=== PATIENT | female | born 1955 | race Caucasian/White ===

== ENCOUNTER → 2017-06-13 10:31 | Outpatient (CLI) | payer BC, SELFPAY ==
--- NOTE | 2017-06-13 11:00 | MM_ITS ---
MM Dig screening mamm BI w/CAD CAD Screening COMPARISON: Digital mammograms 06/26/2014 and 05/04/2016 INDICATION: There is no personal or family history of breast cancer. There is been previous biopsy right breast for benign disease. TECHNIQUE: Standard CC and MLO images were obtained. R2 CAD reviewed. FINDINGS: Moderate scattered fibroglandular densities are seen in the central portions of both breast and the findings are bilateral and symmetrical. There is no suspicious lesion and there are no suspicious microcalcifications. IMPRESSION: Stable exam with no suspicious lesion seen BI-RADS Category: 1 Negative RECOMMENDED FOLLOW-UP: 1YR - 1 YEAR FOLLOW-UP (A letter has been sent to the patient regarding results of the study.)
== END ==
PROVIDERS: Family Provider Family Medicine; PCP Family Medicine; Visit Provider Nurse Practitioner
DX: Z12.31 Encounter for screening mammogram for malignant neoplasm of breast (principal)
CPT/HCPCS: 77067

== ENCOUNTER → 2018-11-07 10:05 | Outpatient (CLI) | payer MEDICARE, SELFPAY ==
--- NOTE | 2018-11-07 10:12 | MM_ITS ---
PROCEDURE: MM DIG SCREENING MAMM BI W/CAD CLINICAL INDICATION: SCREENING routine screening mammogram. No hormones. No new complaints. Previous benign needle biopsy right breast. Noncontributory family history COMPARISON: DMDBAV DIG MAMM-DX BILAT W/ADD VIEWS from 04/25/2011 DMDB DIGITAL MAMM-DX BILATERAL from 11/03/2011 D[facility]B DIG MAMM-SCREEN HIRAL from 12/04/2013 DMDXUAVR DIG MAMM-DX UNI ADD VIEWS-RT from 12/17/2013 D[facility]B DIG MAMM-SCREEN HIRAL from 06/26/2014 D[facility]B DIG MAMM-SCREEN HIRAL W/CAD from 05/04/2016 [facility] MM Dig screening mamm BI w/CAD from 06/13/2017 TECHNIQUE: Standard CC and MLO images were obtained. R2 CAD reviewed. FINDINGS: Moderate density breast. No suspicious nor dominant mass. No new suspicious density. No suspicious calcifications. Left breast stable unremarkable Right breast but no new areas of significant concern a minimal density retroareolar region MLO view appears similar to MLO studies dating back to 2011 and 2013 IMPRESSION: No new areas of significant concern. Stable mammogram. Bilateral follow-up 1 year should be emphasized/encouraged for ongoing follow-up Moderate breast density BI-RAD Category: 2 Benign Finding(s) FOLLOW-UP: 1YR 1 Year Follow-up (A letter has been sent to the patient regarding results of the study.) Month Dictated by: Romain Livingston MD 11/07/2018 13:54 Signed by: <Electronically signed by Romain Livingston MD in [place]> 11/16/2018 11:31
== END ==
PROVIDERS: PCP Family Medicine; Referring Provider Family Medicine; Visit Provider Family Medicine
DX: Z12.31 Encounter for screening mammogram for malignant neoplasm of breast (principal)
CPT/HCPCS: 77067

== ENCOUNTER → 2019-04-05 13:01 | Outpatient (CLI) | payer MEDICARE, SELFPAY ==
--- NOTE | 2019-04-05 13:06 | XR_ITS ---
PROCEDURE: XR DEXA AXIAL SKELETON CLINICAL HISTORY: POST MENOPAUSAL COMPARISON: No exams were available for comparison FINDINGS: Right femoral neck density is 0.610 with a T-score -2.2 indicating osteopenia Left femoral neck density is 0.571 grams/centimeters sq with T-score -2 point indicating osteoporosis. L1-L4 density has a bone density 0.968 grams/centimeters sq with T-score -0.7. IMPRESSION: Osteoporosis with high fracture risk. Treatment advised. Recommend follow-up exam in 1 year Dictated by: Cuate Boyer MD 04/05/2019 15:34 Electronically signed by Cuate Boyer MD in [place] 04/05/2019 15:34
== END ==
PROVIDERS: PCP Family Medicine; Visit Provider Family Medicine
DX: Z78.0 Asymptomatic menopausal state (principal)
CPT/HCPCS: 77080

== ENCOUNTER → 2019-04-05 14:59 | Outpatient (CLI) | payer MEDICARE, SELFPAY ==
[2019-04-05 15:13] LABS: Basophils # 0.1 K/mm3 (0-0.2); Basophils % 0.8 % (0.1-2.0); Eosinophils # 0.2 K/mm3 (0.0-0.4); Eosinophils % 2.2 % (0.1-12.0); Hematocrit 43.3 % (37.0-47.0); Hemoglobin 13.1 g/dL (12.2-16.2); Lymphocytes # 2.2 K/mm3 (0.7-4.5); Lymphocytes % 26.8 % (10-50); Mean Corpuscular HGB Conc 30.4 g/dL (31.8-35.4); Mean Corpuscular Hemoglobin 26.9 pg (27.0-31.2); Mean Corpuscular Volume 88.6 fl (81-99); Mean Platelet Volume 6.9 fl (7.4-10.4); Monocytes # 0.5 K/mm3 (0.1-1.0); Monocytes % 5.7 % (1.7-9.3); Neutrophils # 5.3 K/mm3 (1.8-7.8); Neutrophils % 64.5 % (37.0-80.0); Platelet Count 395 K/mm3 (142-424); Red Blood Count 4.88 M/mm3 (4.20-5.40); Red Cell Distribution Width 13.1 % (11.5-17.5); White Blood Count 8.2 K/mm3 (4.8-10.8)
[2019-04-05 16:28] LABS: Anion Gap 12.1 mEq/L (5-15); Blood Urea Nitrogen 12 mg/dL (7-18); Calcium 8.8 mg/dL (8.5-10.1); Carbon Dioxide 29 mmol/L (21.0-32.0); Chloride 102 mmol/L (98-107); Creatinine,Serum 0.79 mg/dL (0.55-1.02); Estimated Glomerular Filt Rate 73 ml/min (>60); GFR (African American) 88 ML/MIN (>60); Glucose 93 mg/dL (74-106); Potassium 4.1 mmoL/L (3.5-5.1); Sodium 139 mmol/L (136-145)
== END ==
PROVIDERS: Visit Provider Surgery
DX: D17.9 Benign lipomatous neoplasm, unspecified (principal); M81.0 Age-related osteoporosis without current pathological fracture
CPT/HCPCS: 36415; 77080; 80048; 85025

== ENCOUNTER → 2019-10-21 09:16 | Outpatient (CLI) | payer MEDICARE, SELFPAY ==
--- NOTE | 2019-10-21 | CA_ITS ---
APPROVED REPORT Exam: Exercise Treadmill Technologist: Kristie Nair Ht: 5 ft 2 in Wt: 140 lbs BSA: 1.64 m2 HR: 64 bpm BP: 130/67 mmHg Indications: Dyspnea on Exertion, Medical History Medications: Levothyroxine,,,,, Atorvastatin,,,,, Zolpidem,,,,, Hydroxychloroquine,,,,, Stress Test Details Test: Liu HR Resting HR: 77 bpm Max Heart Rate (APMHR): 154 bpm Max HR Achieved: 150 bpm Target HR (85% APMHR): 130 bpm % of APMHR: 97 Recovery HR: 72 bpm BP Resting BP: 117.0/65.0 mmHg Max BP: 156.0/72.0 mmHg Recovery BP: 127.0/64.0 mmHg ECG Clinical Exercise duration: 06:38 min Highest Stage Achieved: Exercise capacity: 7.0 METs Stress ECG Conclusion Resting ECG: Sinus rhythm Liu protocol completed. Stress echo. Patient exercised 06:38. Test stopped due to shortness of breath.. Symptoms: No chest pain. Shortness of breath at peak exercise, resolved in recovery. Arrhythmias/Ectopy: No ectopy ST-T Changes: Greater than 1.5 mm vs. artifact Conclusion: Stress echo. Appropriate exercise tolerance. Appropriate blood pressure response. No ectopy. Shortness of breath at peak exercise. No chest pain. greater than 1.5 mm vs. artifact. Test Summary REST 29:09 0.0 0.0 77 . 117/ 65 . . Stage 1 01:00 10.0 1.7 98 . . . . Stage 1 02:00 10.0 1.7 118 . . . . Stage 1 03:00 10.0 1.7 123 . . . . Stage 2 01:00 12.0 2.5 127 . 130/ 70 . . Stage 2 02:00 12.0 2.5 131 . 130/ 70 . . Stage 2 03:00 12.0 2.5 135 . 152/ 78 . . Stage 3 00:38 14.0 1.6 140 . . . Stop exercise at 06:38 RECOVERY 01:00 0.0 0.0 106 . . . . RECOVERY 02:00 0.0 0.0 88 . . . . RECOVERY 03:00 0.0 0.0 86 . . . . RECOVERY 04:00 0.0 0.0 77 . 156/ 72 . . RECOVERY 05:00 0.0 0.0 72 . 127/ 64 . . RECOVERY 05:25 0.0 0.0 72 . 127/ 64 . . Electronically signed by : Madhu Christine, 10/23/2019 06:46:03
--- NOTE | 2019-10-21 | CA_ITS ---
APPROVED REPORT EXAM: Comprehensive 2D, Doppler, and color-flow Echocardiogram Gun Numberer: Irma Tse RT(R) Ht: 5 ft 2 in Wt: 140lbs BSA: 1.64 BP: 135/26 mmHg Indications: CHAPMAN Conclusion 1. Patient exercised on Liu protocol and achieved 7 mets of workload on treadmill, please refer to EKG portion of the stress echo for full interpretation. 2. The resting echocardiogram showed normal left ventricular size and function preserved left ventricular systolic function, no regional wall motion abnormality, with exercise there is no segmental wall motion abnormality to suggest underlying ischemic heart disease. 3. Normal echo portion of the exercise stress echo. Electronically signed by : Ja Daniel, 10/21/2019 18:13:30
== END ==
PROVIDERS: PCP Family Medicine; Visit Provider Family Medicine
DX: R07.89 Other chest pain (principal); R06.00 Dyspnea, unspecified; E78.00 Pure hypercholesterolemia, unspecified; Z87.891 Personal history of nicotine dependence
CPT/HCPCS: 93017; 93350

== ENCOUNTER → 2019-10-28 10:53 | Outpatient (CLI) | payer MEDICARE, SELFPAY ==
[2019-10-28 11:30] VITALS: PULSE 78; PULSE 80
== END ==
PROVIDERS: PCP Family Medicine; Visit Provider Family Medicine
DX: R06.00 Dyspnea, unspecified (principal); Z87.891 Personal history of nicotine dependence
CPT/HCPCS: 94060; 94640

== ENCOUNTER → 2020-03-04 10:10 | Outpatient (CLI) | payer MEDICARE, SELFPAY ==
--- NOTE | 2020-03-04 10:13 | MM_ITS ---
PROCEDURE: MM DIG SCREENING MAMM BI W/CAD Digital Breast Tomosynthesis Included CLINICAL INDICATION: SCREENING There is no personal or family history of breast cancer. There has been a previous biopsy right breast for benign disease. COMPARISON: MG DMSB DIG MAMM-SCREEN HIRAL W/CAD from 05/04/2016 MG [facility] MM Dig screening mamm BI w/CAD from 06/13/2017 MG MM DIG SCREENING MAMM BI W/CAD from 11/07/2018 TECHNIQUE: Standard CC and MLO images and 3D Tomosynthesis was obtained. R2 CAD reviewed. FINDINGS: Mild to moderate diffuse fibroglandular densities are seen in the central portions of both breast and the findings are bilateral and symmetrical. There are no CAD markings. There is no new or suspicious lesion in either breast and no suspicious microcalcifications. IMPRESSION: Fibrofatty parenchyma with no suspicious lesions seen BI-RAD Category: FOLLOW-UP: (A letter has been sent to the patient regarding results of the study.) Dictated by: Dr. Navdeep Virgen MD 03/06/2020 12:08 Dr. Navdeep Virgen MD in [place] 03/06/2020 12:08
== END ==
PROVIDERS: PCP Family Medicine; Visit Provider Family Medicine
DX: Z12.31 Encounter for screening mammogram for malignant neoplasm of breast (principal)
CPT/HCPCS: 77063; 77067

== ENCOUNTER 2020-09-21 15:00 | Outpatient (RCR) | payer MEDICARE, SELFPAY ==
--- NOTE | 2020-09-16 16:08 | HMH.OTOPEV ---
OT Inpatient Evaluation Rehab OT Outpatient Eval Start: 09/16/20 15:36 Freq: Status: Active Protocol: Document 09/16/20 15:37 RIPCONCETTA (Rec: 09/16/20 15:58 SOPHIE [id number]) Electronically Signed By Lanette Renae OT 09/16/20 15:37 Outpatient Therapy Subjective History Subjective History 65 year old female referred to skilled OP OT services for left shoulder pain. Patient stated having left shoulder pain since Apr 2020 after lifting heavy bags of salt and moving tree branches from the yard. Patient recieved skilled OP PT services at another facility in [place], however quit going after 1 tx due to increase pain levels. Patient stated having difficulty with lifting left shoulder to complete ADLs and everyday functional tasks. Chief Complaint Pain,Weakness Symptom Type Ache,Dull Symptoms Relieved By Prescription Meds Symptoms Aggravated By Physical Activity Prior Functional Limitations None Current Functional Limitations Reaching,Lifting,Dressing, Sleeping,Recreation Activity Symptom Description Constant and Continuous Level of pain today (0-10) 4 Pain scale - at its best (0-10) 4 Pain scale - at its worst (0-10) 4 Shoulder/Elbow Eval Shoulder Objective Measurements Shoulder ROM Left Shoulder Abduction Active Range of 115 Motion (degrees) Shoulder Flexion Active Range of Motion 140 (degrees) Query Text: Shoulder External Rotation Active Range 62 of Motion (degrees) Shoulder Internal Rotation Active Range 60 of Motion (degrees) pain with active ROM shoulder exam left standard Shoulder MMT Shoulder Abduction Strength Grade 3- Fair- Shoulder Extension Strength Grade 3- Fair- Shoulder Flexion Strength Grade 3- Fair- Shoulder Horizontal Abduction Strength 3- Fair- Grade Infraspinatus/Teres Minor Strength Grade 3- Fair- Shoulder External Rotation Strength 3- Fair- Grade Shoulder Internal Rotation Strength 3- Fair- Grade Elbow Objective Measurements OT Outpatient Assessment Impairments Problems/Impairments Impaired Range of Motion, Impaired Strength,Impaired Endurance,Subjective C/O
== END 2020-09-21 15:05 | disposition home or self-care (01) ==
LOC: OT 15:00
PROVIDERS: PCP Family Medicine; Visit Provider Family Medicine
DX: M75.102 Unspecified rotator cuff tear or rupture of left shoulder, not specified as traumatic (principal)
CPT/HCPCS: 97014; 97110; 97140; 97165; 97530; G0283

== ENCOUNTER → 2021-08-06 11:20 | Outpatient (CLI) | payer MEDICARE, SELFPAY ==
--- NOTE | 2021-08-06 11:29 | XR_ITS ---
FINAL REPORT CLINICAL HISTORY: LT HIP PAIN, patient states she fell 13 years ago and has had pain between scapula and shoots up neck ever since, recent hip xray at chiropractor showed possible left bone spur on hip FINDINGS: LEFT HIP: Two views of the left hip with an AP view of the pelvis demonstrate no acute fracture or dislocation. There is mild degenerative change of the right hip. There is moderate to severe degenerative change of the left hip. There is mild degenerative change of the lower lumbar spine. The visualized bony structures are well aligned. No soft tissue abnormality is seen. IMPRESSION: Degenerative changes with no acute bony abnormality. Reviewed, Interpreted and Dictated by Rolando Chavarria III, MD Transcribed by Bianca Valles Authenticated by Rolando Chavarria III, MD on 08/06/2021 01:37:32 PM [facility]
--- NOTE | 2021-08-06 11:29 | XR_ITS ---
FINAL REPORT CLINICAL HISTORY: CERVICALGIA patient states she fell 13 years ago and has had pain between scapula and shoots up neck ever since, recent hip xray at chiropractor showed possible left bone spur on hip FINDINGS: CERVICAL SPINE Five views were obtained. There is no acute fracture. There is mild retrolisthesis of C5 in relation to C4 and C6. There is multilevel mild neural foraminal narrowing seen on the oblique views. There is mild and moderate degenerative change. There is no soft tissue abnormality. IMPRESSION: Degenerative change with no acute bony abnormality. Reviewed, Interpreted and Dictated by Rolando Chavarria III, MD Transcribed by Bianca Valles Authenticated by Rolando Chavarria III, MD on 08/06/2021 01:37:35 PM [facility]
== END ==
PROVIDERS: PCP Family Medicine; Visit Provider Family Medicine
DX: M54.2 Cervicalgia (principal); M25.552 Pain in left hip
CPT/HCPCS: 72050; 73502

== ENCOUNTER → 2021-10-28 10:44 | Outpatient (CLI) | payer MEDICARE, SELFPAY ==
--- NOTE | 2021-10-28 10:50 | MM_ITS ---
PROCEDURE INFORMATION: Exam: MG Bilateral Screening 3D Mammography Exam date and time: 10/28/2021 10:43 AM Age: 66 years old Clinical indication: Screening examination TECHNIQUE: Imaging protocol: Bilateral Screening tomosynthesis and 2D mammography including computer-aided detection (CAD) when performed. COMPARISON: 1. MG MM DIG SCREENING MAMM BI W/CAD 03/04/2020 10:17 AM 2. MG MM DIG SCREENING MAMM BI W/CAD 11/07/2018 10:28 AM FINDINGS: MAMMOGRAPHY: Breast composition: The breasts are heterogeneously dense, which may obscure small masses. Mass: None. Architectural distortion: None. Calcifications: No suspicious calcifications. Asymmetric density: None. Skin thickening: None. Axillary adenopathy: None. IMPRESSION: No mammographic evidence of malignancy. Annual screening is recommended unless otherwise clinically indicated. ASSESSMENT: BI-RADS Category 1: Negative
== END ==
PROVIDERS: PCP Family Medicine; Visit Provider Nurse Practitioner Family
DX: Z12.31 Encounter for screening mammogram for malignant neoplasm of breast (principal)
CPT/HCPCS: 77063; 77067

== ENCOUNTER → 2021-12-23 10:32 | Outpatient (CLI) | payer MEDICARE, SELFPAY ==
--- NOTE | 2021-12-23 10:38 | CA_ITS ---
FINAL REPORT TECHNIQUE: Color Doppler, duplex Doppler and compression sonography of the right lower extremity venous system was performed. CLINICAL HISTORY: PAIN RT GROIN TO RT CALF X SEVERAL WEEKS FINDINGS: There is no evidence of deep venous thrombosis from the level of the groin to the calf. The veins are patent and compressible. IMPRESSION: No evidence of deep venous thrombosis right lower extremity. Reviewed, Interpreted and Dictated by Rolando Chavarria III, MD Transcribed by Teri Macias Authenticated and [facility]
--- NOTE | 2021-12-23 11:05 | XR_ITS ---
FINAL REPORT CLINICAL HISTORY: HIP PAIN COMPARISON: August 06, 2021 FINDINGS: 2 views of the right hip and an AP pelvis were obtained. There is no acute fracture or dislocation. There are severe degenerative changes of both hips, progressed on the right. There is moderate degenerative change of the lower lumbar spine. There are no soft tissue abnormalities. IMPRESSION: Severe degenerative changes bilaterally, progressed on the right. Reviewed, Interpreted and Dictated by Rolando Chavarria III, MD Transcribed by Chester Starr Authenticated and [facility]
== END ==
PROVIDERS: PCP Nurse Practitioner Family; Visit Provider Nurse Practitioner Family
DX: M25.551 Pain in right hip (principal); R10.31 Right lower quadrant pain; M79.661 Pain in right lower leg
CPT/HCPCS: 73502; 93971

== ENCOUNTER → 2021-12-31 08:03 | Outpatient (CLI) | payer MEDICARE, SELFPAY ==
--- NOTE | 2021-12-31 08:08 | XR_ITS ---
FINAL REPORT CLINICAL HISTORY: leg pain FINDINGS: Right tibia fibula Two views were obtained. There is no acute fracture or dislocation. The joint spaces appear normal. No soft tissue abnormality is identified. IMPRESSION: No acute process. Reviewed, Interpreted and Dictated by Rolando Chavarria III, MD Transcribed by Fiorella Villaseñor Authenticated and [facility]
== END ==
PROVIDERS: PCP Nurse Practitioner Family; Visit Provider Orthopaedic Surgery
DX: M79.604 Pain in right leg (principal)
CPT/HCPCS: 73590

== ENCOUNTER → 2022-01-03 10:00 | Outpatient (CLI) | payer MEDICARE, SELFPAY ==
--- NOTE | 2022-01-03 10:07 | CT_ITS ---
FINAL REPORT TECHNIQUE: After the administration of intravenous contrast, axial images were obtained through the abdomen and pelvis by computed tomography. This study was performed with technique to keep radiation doses as low as reasonably achievable, (ALARA). Individualized dose reduction techniques using automated exposure control or adjustment of the MA and/or KV according to the patient's size were employed. CLINICAL HISTORY: N/V/D, R LOWER QUAD PAIN, COFFEE GROUND VOMITING FINDINGS: Abdomen: The lung bases mild bronchiectasis in the lingula. The liver is normal in size and attenuation. Gallbladder is present. The spleen is unremarkable. The adrenals are normal. The pancreas is unremarkable. The kidneys enhance appropriately. There is a 4.5 cm right renal cyst. The aorta is normal in caliber. There is no free fluid or adenopathy. Pelvis: The appendix is normal. The urinary bladder is unremarkable. There is no free fluid or adenopathy. IMPRESSION: No acute intra-abdominal process. Reviewed, Interpreted and Dictated by Rolando Chavarria III, MD Transcribed by Reema Penaloza Authenticated and . [facility]
[2022-01-03 10:37] LABS: Blood Urea Nitrogen 12 mg/dl (7-17); Estimated Glomerular Filt Rate 83 ml/min (>60); GFR (African American) 101 ML/MIN (>60)
== END ==
PROVIDERS: PCP Nurse Practitioner Family; Visit Provider Nurse Practitioner Family
DX: R10.31 Right lower quadrant pain (principal); R11.2 Nausea with vomiting, unspecified; R19.7 Diarrhea, unspecified
CPT/HCPCS: 36415; 74160; 82565; 84520; Q9967

== ENCOUNTER → 2022-02-14 12:39 | Outpatient (CLI) | payer MEDICARE, SELFPAY ==
--- NOTE | 2022-02-14 12:40 | MR_ITS ---
FINAL REPORT TECHNIQUE: Multiplanar MR without contrast CLINICAL HISTORY: back pain. RIGHT SIDED NECK PAIN WHEN TURNING HEAD TO THE LEFT. INTERMITTENT HEADACHE. FINDINGS: Limited images of the posterior fossa are unremarkable. 2 mm of retrolisthesis at C5-C6. 2 mm of anterolisthesis at C4-C5. Hemangioma in T2. Cervical spinal cord shows normal signal and contour. C2-3: Moderate right facet arthropathy. C3-4: Mild facet arthropathy without disc disease. C4-5: Mild endplate spurring. Minimal annular disc bulge. Moderate left neural foraminal narrowing. C5-6: Moderate endplate spurring. Mild facet arthropathy. Moderate bilateral neural foraminal narrowing. C6-7: Mild annular disc bulge. Facet arthropathy. C7-T1: Unremarkable IMPRESSION: Multilevel degenerative changes as above. Reviewed, Interpreted and Dictated by Kaylah Alvarado MD Transcribed by Chester Starr Authenticated and [facility]
--- NOTE | 2022-02-14 12:40 | MR_ITS ---
FINAL REPORT TECHNIQUE: Multiplanar MR without contrast CLINICAL HISTORY: back/hip pain. LOW BACK PAIN WITH BILATERAL BUTTOX PAIN. RIGHT HIP AND LEG PAIN. SYMPTOMS XYEARS. NO INJURY OR TRAUMA. FINDINGS: Sagittal images show normal vertebral height. 3 mm of retrolisthesis at L2-L3. Remaining vertebral alignment normal. Hemangioma in L3. T11-T12: Unremarkable. T12-L1: Minimal annular disc bulge. L1-2: Mild annular disc bulge. L2-3: Moderate annular disc bulge. Mild facet arthropathy. Mild bilateral neural foraminal narrowing. L3-4: Moderate annular disc bulge. Mild facet arthropathy. Mild central canal stenosis and mild bilateral neural foraminal narrowing. L4-5: Minimal annular disc bulge. Moderate facet arthropathy. L5-S1: Minimal annular disc bulge. Moderate facet arthropathy. IMPRESSION: Multilevel degenerative changes as above. Reviewed, Interpreted and Dictated by Kaylah Alvarado MD Transcribed by Chester Starr Authenticated and [facility]
== END ==
PROVIDERS: PCP Nurse Practitioner Family; Visit Provider Orthopaedic Surgery
DX: M54.16 Radiculopathy, lumbar region (principal); M54.50 Low back pain, unspecified; M54.2 Cervicalgia
CPT/HCPCS: 72141; 72148; 76376

== ENCOUNTER → 2022-02-15 13:34 | Outpatient (POV) | payer MEDICARE, SELFPAY | PROVIDERS: Visit Provider Dermatology | DX: Z00.00 Encounter for general adult medical examination without abnormal findings (principal) ==

== ENCOUNTER → 2022-04-06 13:34 | Outpatient (POV) | payer MEDICARE, SELFPAY ==
[2022-04-06 13:58] VITALS: BP 125/74; PULSE 89; RESP 18; O2SAT 98; BMI 22.8
--- NOTE | 2022-04-06 15:20 | EXP.PAIN.OV ---
HPI Data of Consult Patient: new to practice Consult date: 04/06/22 Requesting Physician: Genevieve Laws APRN Primary Care Provider: Brett Fan Consult Narrative Reason for consult: Low back pain, leg pain, right ankle pain, right knee pain, bilateral hip p History of present illness: Ms. Alcala is a 66 year old female who presents today as a new patient. She is a referral from Dr. Fan's office. Today she rates her pain a 7 out of 10. Patient states her pain is at multiple locations and has been going on for years. Patient states she has chronic neck and low back pain as well as bilateral hip pain. Patient states that around September of last year she did jam her right leg and ever since has had right ankle and right knee pain. Patient does describe this as a aching, throbbing sensation with occasional sharp pains. Patient states that sometimes the pain goes into her buttocks and groin. Patient does state that at night she feels like she is has more tingling and cramping in her lower extremities and that her ankle and ge are supersensitive to even the slightest touch. Patient states that she did have an ultrasound when all this pain in her right ankle and knee began to rule out possible blood clot and it was all negative. Patient states she has a longstanding history of a right hip fracture in the past patient states that she frequently cannot tolerate any prolonged sitting, standing, walking due to the constant pain. Patient states this does affect her ability to even get sleep. Patient states that she frequently has to sleep in a recliner and any activities such as cooking or cleaning requires her to stop after about 15 minutes and take breaks. Patient does use assistive devices to get into and out of the vehicle. Patient has tried [id number] ibuprofen and Tylenol however she did not notice significant improvement. Patient is prescribed meloxicam 15 mg and she states this helps some. Patient states heat made her pain worse and that she does use a daily ice pack. Patient has tried IcyHot and Biofreeze with 0 improvement. Patient has not been to physical therapy for this pain. Patient does state that she has been experiencing more urinary urgency. She states that she has sometimes had episodes where she cannot hold it between her bed and the bathroom. Patient denies being seen by urologist for this issue. Patient states that she did go to Dr. Laws here at [facility] who did not think he could do anything for her and sent her on to a Dr. Silva. She states he is a homeopathic doctor who was not able to offer any additional options. Patient states that she was told that she needed replacement of her hips and that she is scheduled for a visit with Dr. Granados in [place] in a couple months. Patient is interested in any options we can provide to give her additional improvement. Patient has recently been prescribed [place] 7.5 mg by her primary care doctor and gabapentin 300 mg 3 times [address] day [address] Silva. Patient denies any side effects from these medications however she states she has not noticed significant difference. Her Moy is [id number]. Its been reviewed and appropriate. CC: Genevieve Laws APRN [facility] Disclaimer: The information contained in this section may have been updated after the patient was seen, as this information can be updated by other users. Medical History (Updated 04/06/22 @ 15:24 by Genevieve Laws APRN) HLD (hyperlipidemia) Hypothyroidism Surgical History H/O arthroscopy of shoulder Social History (Updated 04/06/22 @ 14:01 by Carmen Gruber RN) Smoking Status: Former smoker alcohol intake: never substance use type: denies use current occupational status: retired Travel in the last 8 weeks: None household members: spouse housing: house current occupational exposures/hazards: No caffeine: Yes Review of System
== END ==
PROVIDERS: PCP Thoracic Surgery (Cardiothoracic Vascular Surgery); Visit Provider Nurse Practitioner Family
DX: M51.16 Intervertebral disc disorders with radiculopathy, lumbar region (principal); M50.10 Cervical disc disorder with radiculopathy, unspecified cervical region; M48.061 Spinal stenosis, lumbar region without neurogenic claudication; M47.26 Other spondylosis with radiculopathy, lumbar region; M25.551 Pain in right hip; M25.552 Pain in left hip; M25.571 Pain in right ankle and joints of right foot; M25.561 Pain in right knee
CPT/HCPCS: 99202; G0463

== ENCOUNTER → 2022-04-18 09:27 | Outpatient (POV) | payer MEDICARE, SELFPAY ==
[2022-04-18 10:31] VITALS: BP 134/68; PULSE 93; RESP 18; O2SAT 97; BMI 22.3
--- NOTE | 2022-04-18 15:50 | EXP.PAIN.SOA ---
[facility] Pain Management SOAP Note Subjective:: Patient is a pleasant 66-year-old female who presents today for follow-up. We are currently treating the patient for degenerative disc disease of cervical and lumbar spine with cervical and lumbar radiculopathy symptoms, lumbar facet arthropathy, lumbar spinal stenosis, right knee pain, right ankle pain. Today she rates her pain a 8 out of 10. Patient denies any new trauma or injury. Patient denies any change location or type of pain she experiences. 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 Patient denies any personal history of blood clots however she states that she does have a family history of this issue. Patient is scheduled to see Dr. Granados in May for her hip pain. Patient does use [id number] Tylenol and ibuprofen in the past with minimal improvement. She was prescribed meloxicam 15 mg daily and states this does help some. Patient was recently prescribed compounding cream that she states does help around her hips and her ankle. Patient states she has not tried it on her knees. Patient has been prescribed [place] 7.5 mg and gabapentin 300 mg 3 times a day in the past however she states she did not notice significant improvement with these medications. Patient is still taking both of these and denies any side effects. Her Moy is [id number]. Its been reviewed and appropriate. Review of Systems: General: No recent weight changes, no fever, no sleep disturbances Respiratory: No cough, no shortness of air, no recurring pulmonary infections Cardiovascular/peripheral vascular: No chest pain, no palpitations, no edema, no shortness of breath Gastrointestinal: No new onset incontinence, normal bowel movements reported Genitourinary: No new onset incontinence Musculoskeletal: Low back pain, hip pain, ankle Psychiatric: [Normal mood/affect] Neurological: [Denies weakness in extremities], [denies balance issues] Objective:: Physical Exam: General: Alert and oriented x3, no acute distress, pleasant and cooperative Lungs: Respirations even and unlabored, symmetrical chest expansion Eyes: PERRL Musculoskeletal: Flexion and extension of lumbar [spine] somewhat guarded secondary to pain, [antalgic gait noted] Neurological: Speech clear, no gross sensory deficit ORT score updated with low risk Assessment:: Degenerative disc disease of cervical and lumbar spine with cervical and lumbar radiculopathy symptoms, lumbar facet arthropathy, lumbar spinal stenosis, right knee pain, right ankle pain Plan:: Patient continues to experience significant pain in her low back and hips with limited range of motion. I have discussed with the patient with her increased risk of blood clots related to the factor V Leiden and the antiphospholipid antibodies that we will hold off on doing any injections at this time. I will order the patient prednisone 20 mg twice daily for 5 days and tizanidine 4 mg at bedtime and provide a 14-day supply of this medication. Patient will return to clinic after her appointment with Dr. Granados in mid May for reevaluation of symptoms and plan of care. Patient has been instructed to contact the clinic with any concerns before the next appointment. Dr. Harris has reviewed this note and agrees with this plan of care. This note was dictated using voice recognition software and make contain errors or omissions. [facility] Disclaimer: The information contained in this section may have been updated after the patient was seen, as this information can be updated by other users. Medical History HLD (hyperlipidemia) Hypothyroidism Surgical History (Reviewed 04/14/22 @ 14:24 by
== END | disposition home or self-care (01) ==
PROVIDERS: PCP Family Medicine; Visit Provider Nurse Practitioner Family
DX: M50.10 Cervical disc disorder with radiculopathy, unspecified cervical region (principal); M51.16 Intervertebral disc disorders with radiculopathy, lumbar region; M47.26 Other spondylosis with radiculopathy, lumbar region; M48.061 Spinal stenosis, lumbar region without neurogenic claudication; M25.571 Pain in right ankle and joints of right foot; M25.561 Pain in right knee
CPT/HCPCS: 99212; G0463

== ENCOUNTER → 2022-05-23 09:11 | Outpatient (CLI) | payer MEDICARE, SELFPAY ==
--- NOTE | 2022-05-23 09:16 | XR_ITS ---
FINAL REPORT TECHNIQUE: Bone densitometry calculations of the lumbar spine and hip were obtained. CLINICAL HISTORY: . POST MENOPAUSAL SCREENING, BILATERAL HIP PAIN COMPARISON: 04/05/2019 FINDINGS: DEXA BONE DENSITY AXIAL SKELETON Using L1-4, the bone mineral density of the spine is 0.969 g/cm2, corresponding to T-score of -0.7. Previously measured 0.968 g/cm2, corresponding to T-score of -0.7. Using the left hip, the bone mineral density of the femoral neck is 0.532 g/cm2, corresponding to a T-score of -2.9. Previously measured 0.571 g/cm2, corresponding to T-score of -2.5. NOTE: T-score: Standard deviation compared with peak bone mass of young adult mean. *Following the recommendations of the International Society of Bone densitometry, classification of hip BMD is based on the lower of two T-scores; total hip or femoral neck. IMPRESSION: Diminished bone mineral density of the left hip consistent with osteoporosis. Normal bone mineral density of the lumbar spine. FRAX not reported because: Some T-score for Spine Total or hip Total or femoral neck at or below-2.5. Prior hip or vertebral fracture. Reviewed, Interpreted and Dictated by Rolando Chavarria III, MD Transcribed by Teri Macias Authenticated and [facility]
== END ==
PROVIDERS: PCP Family Medicine; Visit Provider Family Medicine
DX: Z78.0 Asymptomatic menopausal state (principal); M25.551 Pain in right hip; M25.552 Pain in left hip
CPT/HCPCS: 77080

== ENCOUNTER → 2022-06-14 14:28 | Outpatient (CLI) | payer MEDICARE, SELFPAY ==
[2022-06-14 15:27] LABS: Basophils # 0.1 K/mm3 (0-0.2); Basophils % 0.9 % (0.1-2.0); Eosinophils # 0.1 K/mm3 (0.0-0.4); Eosinophils % 1.1 % (0.1-12.0); Hematocrit 43.8 % (37.0-47.0); Hemoglobin 14.2 g/dL (12.2-16.2); Lymphocytes # 2.2 K/mm3 (0.7-4.5); Lymphocytes % 17.4 % (10-50); Mean Corpuscular HGB Conc 32.3 g/dL (31.8-35.4); Mean Corpuscular Hemoglobin 28.1 pg (27.0-31.2); Mean Platelet Volume 7.3 fl (7.4-10.4); Monocytes # 0.9 K/mm3 (0.1-1.0); Monocytes % 6.6 % (1.7-9.3); Neutrophils # 9.4 K/mm3 (1.8-7.8); Platelet Count 518 K/mm3 (142-424); Red Blood Count 5.04 M/mm3 (4.20-5.40); Red Cell Distribution Width 12.5 % (11.5-17.5); White Blood Count 12.8 K/mm3 (4.8-10.8)
[2022-06-14 15:42] LABS: Uric Acid 4.1 mg/dl (2.5-6.2)
[2022-06-17 15:13] LABS: Peripheral Smear Review Scanned Result
== END ==
PROVIDERS: PCP Nurse Practitioner Family; Visit Provider Nurse Practitioner Family
DX: M25.561 Pain in right knee (principal); D72.829 Elevated white blood cell count, unspecified; D75.839 Thrombocytosis, unspecified; D72.9 Disorder of white blood cells, unspecified
CPT/HCPCS: 36415; 84550; 85025

== ENCOUNTER → 2022-06-23 09:32 | Outpatient (CLI) | payer MEDICARE, SELFPAY ==
[2022-06-23 10:33] LABS: INR 1.87 (0.9-1.1); Prothrombin Time 19.5 seconds (10.1-12.5)
== END ==
PROVIDERS: PCP Family Medicine; Visit Provider Physician Assistant
DX: R79.1 Abnormal coagulation profile (principal)
CPT/HCPCS: 36415; 85610

== ENCOUNTER → 2022-06-27 15:43 | Outpatient (CLI) | payer MEDICARE, SELFPAY ==
[2022-06-27 16:16] LABS: INR 3.24 (0.9-1.1); Prothrombin Time 32.7 seconds (10.1-12.5)
== END ==
PROVIDERS: PCP Family Medicine; Visit Provider Orthopaedic Surgery
DX: Z51.81 Encounter for therapeutic drug level monitoring (principal); Z79.01 Long term (current) use of anticoagulants; Z47.1 Aftercare following joint replacement surgery; Z96.641 Presence of right artificial hip joint
CPT/HCPCS: 85610

== ENCOUNTER → 2022-07-04 09:42 | Outpatient (CLI) | payer MEDICARE, SELFPAY ==
[2022-07-04 11:02] LABS: Prothrombin Time 17.8 seconds (10.1-12.5)
== END ==
PROVIDERS: PCP Family Medicine; Visit Provider Orthopaedic Surgery
DX: R79.1 Abnormal coagulation profile (principal)
CPT/HCPCS: 36415; 85610

== ENCOUNTER → 2022-07-08 10:18 | Outpatient (CLI) | payer MEDICARE, SELFPAY ==
[2022-07-08 11:08] LABS: INR 3.26 (0.9-1.1); Prothrombin Time 32.9 seconds (10.1-12.5)
== END ==
PROVIDERS: PCP Family Medicine; Visit Provider Orthopaedic Surgery
DX: Z51.81 Encounter for therapeutic drug level monitoring (principal); Z79.01 Long term (current) use of anticoagulants
CPT/HCPCS: 36415; 85610

== ENCOUNTER → 2022-07-15 10:57 | Outpatient (CLI) | payer MEDICARE, SELFPAY ==
[2022-07-15 12:22] LABS: INR 3.16 (0.9-1.1)
== END ==
PROVIDERS: PCP Family Medicine; Visit Provider Orthopaedic Surgery
DX: Z51.81 Encounter for therapeutic drug level monitoring (principal); Z79.01 Long term (current) use of anticoagulants
CPT/HCPCS: 36415; 85610

== ENCOUNTER → 2022-07-22 08:36 | Outpatient (CLI) | payer MEDICARE, SELFPAY ==
[2022-07-22 09:19] LABS: INR 2.75 (0.9-1.1)
== END ==
PROVIDERS: PCP Family Medicine; Visit Provider Orthopaedic Surgery
DX: Z51.81 Encounter for therapeutic drug level monitoring (principal); Z79.01 Long term (current) use of anticoagulants
CPT/HCPCS: 36415; 85610

== ENCOUNTER → 2022-07-29 10:02 | Outpatient (CLI) | payer MEDICARE, SELFPAY ==
[2022-07-29 11:54] LABS: INR 1.75 (0.9-1.1); Prothrombin Time 18.3 seconds (10.1-12.5)
== END ==
PROVIDERS: PCP Family Medicine; Visit Provider Orthopaedic Surgery
DX: Z51.81 Encounter for therapeutic drug level monitoring (principal); Z79.01 Long term (current) use of anticoagulants
CPT/HCPCS: 36415; 85610

== ENCOUNTER → 2022-08-05 09:39 | Outpatient (CLI) | payer MEDICARE, SELFPAY ==
[2022-08-05 11:21] LABS: INR 1.87 (0.9-1.1); Prothrombin Time 19.5 seconds (10.1-12.5)
== END ==
PROVIDERS: PCP Family Medicine; Visit Provider Orthopaedic Surgery
DX: Z51.81 Encounter for therapeutic drug level monitoring (principal); Z79.01 Long term (current) use of anticoagulants
CPT/HCPCS: 36415; 85610

== ENCOUNTER → 2022-08-12 07:46 | Outpatient (CLI) | payer MEDICARE, SELFPAY ==
[2022-08-12 08:25] LABS: INR 0.94 (0.9-1.1); Prothrombin Time 10.2 seconds (10.1-12.5)
== END ==
PROVIDERS: PCP Family Medicine; Visit Provider Orthopaedic Surgery
DX: Z51.81 Encounter for therapeutic drug level monitoring (principal); Z79.01 Long term (current) use of anticoagulants
CPT/HCPCS: 36415; 85610

== ENCOUNTER → 2022-08-25 08:48 | Outpatient (CLI) | payer MEDICARE, SELFPAY ==
[2022-08-25 09:30] LABS: INR 2.86 (0.9-1.1); Prothrombin Time 29.1 seconds (10.1-12.5)
== END ==
PROVIDERS: PCP Family Medicine; Visit Provider Orthopaedic Surgery
DX: Z51.81 Encounter for therapeutic drug level monitoring (principal); Z79.01 Long term (current) use of anticoagulants
CPT/HCPCS: 36415; 85610; 88305

== ENCOUNTER → 2022-08-29 09:48 | Outpatient (CLI) | payer MEDICARE, SELFPAY ==
[2022-08-29 10:51] LABS: INR 2.17 (0.9-1.1); Prothrombin Time 22.4 seconds (10.1-12.5)
== END ==
PROVIDERS: PCP Family Medicine; Visit Provider Orthopaedic Surgery
DX: Z51.81 Encounter for therapeutic drug level monitoring (principal); Z79.01 Long term (current) use of anticoagulants
CPT/HCPCS: 36415; 85610

== ENCOUNTER → 2022-09-01 08:59 | Outpatient (CLI) | payer MEDICARE, SELFPAY ==
[2022-09-01 09:40] LABS: INR 1.84 (0.9-1.1); Prothrombin Time 19.2 seconds (10.1-12.5)
== END ==
PROVIDERS: PCP Family Medicine; Visit Provider Orthopaedic Surgery
DX: Z51.81 Encounter for therapeutic drug level monitoring (principal); Z79.01 Long term (current) use of anticoagulants
CPT/HCPCS: 36415; 85610

== ENCOUNTER → 2022-09-06 09:47 | Outpatient (CLI) | payer MEDICARE, SELFPAY ==
[2022-09-06 10:53] LABS: INR 1.33 (0.9-1.1); Prothrombin Time 14.1 seconds (10.1-12.5)
== END ==
PROVIDERS: PCP Family Medicine; Visit Provider Orthopaedic Surgery
DX: Z51.81 Encounter for therapeutic drug level monitoring (principal); Z79.01 Long term (current) use of anticoagulants
CPT/HCPCS: 36415; 85610

== ENCOUNTER → 2022-09-09 10:06 | Outpatient (CLI) | payer MEDICARE, SELFPAY ==
[2022-09-09 10:44] LABS: INR 1.79 (0.9-1.1); Prothrombin Time 18.7 seconds (10.1-12.5)
== END ==
PROVIDERS: PCP Family Medicine; Visit Provider Orthopaedic Surgery
DX: Z51.81 Encounter for therapeutic drug level monitoring (principal); Z79.01 Long term (current) use of anticoagulants
CPT/HCPCS: 36415; 85610

== ENCOUNTER 2023-03-28 10:43 | Outpatient (CLI) | payer MEDICARE, SELFPAY ==
--- NOTE | 2023-03-28 10:47 | MM_ITS ---
PROCEDURE INFORMATION: Exam: MG Bilateral Screening 3D Mammography Exam date and time: 03/28/2023 10:40 AM Age: 67 years old Clinical indication: Screening examination TECHNIQUE: Imaging protocol: Bilateral Screening tomosynthesis and 2D mammography including computer-aided detection (CAD) when performed. COMPARISON: 1. MG MM DIG SCREENING MAMM BI W/CAD 10/28/2021 10:43 AM 2. MG MM DIG SCREENING MAMM BI W/CAD 03/04/2020 10:17 AM FINDINGS: MAMMOGRAPHY: Breast composition: The breasts are heterogeneously dense, which may obscure small masses. Mass: None. Architectural distortion: None. Calcifications: No suspicious calcifications. Asymmetric density: None. Skin thickening: None. Axillary adenopathy: None. IMPRESSION: No mammographic evidence of malignancy. Annual screening is recommended unless otherwise clinically indicated. ASSESSMENT: BI-RADS Category 1: Negative
== END 2023-03-28 23:59 ==
LOC: RAD 10:43
PROVIDERS: PCP Family Medicine; Visit Provider Nurse Practitioner Family
DX: Z12.31 Encounter for screening mammogram for malignant neoplasm of breast (principal)
CPT/HCPCS: 77063; 77067

== ENCOUNTER 2024-07-10 10:44 | Outpatient (CLI) | payer MEDICARE, SELFPAY ==
--- OUTSIDE RECORDS SUMMARY | 2024-07-10 10:46 | XMS_ITS | Clinical Summary ---
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 Name Role Phone Gilmer ASHLEY, Italo Lau Unavailable [phone] JACKLYN JAIN MD Unavailable [phone] Reason for Visit and Chief Complaint The Chief Complaint is: BILATER HIP PAIN Problems Includes: Problems addressed during this encounter and other active Problems All Visits Onset Date Resolved Date Provider Condition S tatus Joint Pain, Localized in the Shoulder 10/20/2022 Shadia Potter PA-C Active Last Documented On 3 9:55AM ; [facility] Joint Pain in Both Hips 05/26/2022 Italo Dixon MD Active Last Documented On 3 10:52AM ; [facility] Plan of Treatment Fall Risk Assessment: This patient has been identified as a fall risk. Balance/gait along with postural blood pressure, vision and home fall hazards have been assessed. Medications have been reviewed, and recommendations made with regard to contributing factors for future falls. Plan of care: Consideration of vitamin D supplementation along with balance and strength training with consideration for formal physical therapy has been discussed with the patient. - Last Documented On 09/27/2022 12:59PM ; [facility] overall the patient is pleased with her progress, she remarks right hip has been slower to improve. Today we discussed continued patients with recovery, continued physical therapy. We will plan for follow-up one year postop for x-ray and exam - Last Documented On 09/27/2022 12:59PM ; [facility] Assessments Includes: Assessments from this encounter Findings 6 week status post left ADINA - Last Documented On 09/27/2022 12:59PM ; [facility] 3 months status post right ADINA - Last Documented On 09/27/2022 12:59PM ; [facility], [facility] Medical Equipment - Implanted Devices Includes: Current Devices No Medical Equipment Recorded Medications Includes: Medications discussed during this encounter and other current Medications Current Medications (continue as prescribed) Meloxicam 15 MG Oral Tablet 10/19/2022 Provider: Carmen Carlin NP Diagnosis: Last Documented On 3 9:55AM By Arleen Adan ; [facility], [facility] Cyclobenzaprine HCl 10 MG Oral Tablet 10/14/2022 Pro vider: JACKLYN JAIN MD Diagnosis: Last Documented On 3 9:55AM By Arleen Adan ; [facility], [facility] Zolpidem Tartrate 10 MG Oral Tablet 10/04/2022 Provi ana: JACKLYN JAIN MD Diagnosis: Last Documented On 3 9:55AM By Arleen Adan ; [facility], [facility] Hydroxychloroquine Sulfate 200 MG Oral Tablet 09/14/19 Provider: Carmen Carlin NP Diagnosis: Last Documented On 3 9:55AM By Arleen Adan ; [facility], [facility] traMADol HCl 50 MG Oral Tablet 09/09/2022 Provider: ITALO DIXON MD Diagnosis: Last Documented On 3 9:55AM By Arleen Adan ; [facility], [facility] oxyCODONE HCl 5 MG Oral Tablet 09/09/2022 Provider: ITALO DIXON MD Diagnosis: Last Documented On 3 9:55AM By Arleen Adan ; [facility], [facility] Warfarin Sodium 1 MG Oral Tablet 09/06/2022 Provider : ITALO DIXON MD Diagnosis: Last Documented On 3 9:55AM By Arleen Adan ; [facility], [facility] Warfarin Sodium 5 MG Oral Tablet 07/21/2022 Provider : Diagnosis: Last Documented On 3 10:10AM By Jocelyn Murray ; [facility], [facility] Levothyroxine Sodium 25 MCG Oral Tablet 07/21/2022 Conor arrietader: Diagnosis: Last Documented On 3 10:09AM By Jocelyn Murray ; [facility], [facility] Gabapentin 300 MG Oral Capsule 07/21/2022 Provider: Diagnosis: Last Documented On 3 10:08AM By Jocelyn Murray ; [facility], [facility] Ascorbic Acid 500 MG Oral Capsule 07/21/2022 Provide r: Diagnosis: Last Documented On 3 10:07AM By Jocelyn Murray ; [facility], [facility] Warfarin Sodium 1 MG Oral Tablet 2022 Provider : ITALO DIXON MD Diagnosis: Last Documented On 3 9:29AM By Nirali Claire ; [facility], [facility] Hydroxychloroquine Sulfate 200 MG Oral Tablet 06/07/19 Provider: Diagnosis: Last Documented On 3 8:45AM By Jocelyn Murray ; [facility], [facility] Meloxicam 15 MG Oral Tablet 06/06/2022 Provider: Diagnosis: Last Documented On 3 8:46AM By Jocelyn Murray ; [facility], [facility] Atorvastatin Calcium 20 MG Oral Tablet 06/06/2022 Pr ovider: Diagnosis: Last Documented On 3 8:44AM By Jocelyn Murray ; [facility], [facility] Zolpidem Tartrate 10 MG Oral Tablet 05/25/2022 Provi ana: JACKLYN JAIN MD Diagnosis: Last Documented On 3 10:41AM By Sanket Saunders ; [facility], [facility] Cyclobenzaprine HCl 10 MG Oral Tablet 05/18/2022 Pro vider: JACKLYN JAIN MD Diagnosis: Last Documented On 3 10:41AM By Sanket Saunders ; [facility], [facility] HYDROcodone-Acetaminophen 7. 5-325 MG Oral Tablet 05/18/2022 Provider: JACKLYN JAIN MD Diagnosis: Last Documented On 3 10:41AM By Sanket Saunders ; [facility], [facility] tiZANidine HCl 4 MG Oral Tablet 05/05/2022 Provider: CORINNE CORCORAN MD Diagnosis: Last Documented On 3 10:41AM By Sanket Saunders ; [facility], [facility] Past Medications on file Medrol 4 MG Oral Tablet Therapy Pack 02/01/2023 - 02/08/2023 Provider: Italo Dixon MD Diagnosis: take as directed per instructions on box Last Documented On 3 11:15AM By Felice Dixon ; [facility] oxyCODONE HCl 5 MG Oral Tablet 09/09/2022 - 09/14/2022 Provider: Italo pitts MD Diagnosis: 1-2 po q 4-6h Last Documented On 3 9:06AM By Felice Dixon ; [facility] traMADol HCl 50 MG Oral Tablet 09/09/2022 - 09/14/2022 Provider: Italo pitts MD Diagnosis: 1-2 po q 4-6h Last Documented On 3 9:06AM By Felice Dixon ; [facility] Warfarin Sodium 1 MG Oral Tablet 09/06/2022 - 09/16/2022 Provider: Italo pitts MD Diagnosis: take as directed take one ta blet daily as directed by your physician Last Documented On 3 2:12PM By Felice Dixon ; [facility] traMADol HCl 50 MG Oral Tablet 09/05/2022 - 09/10/2022 Provider: Italo pitts MD Diagnosis: 1-2 po q 4-6h Last Documented On 3 12:12PM By Felice Dixon ; [facility] Warfarin Sodium 4 MG Oral Tablet 08/25/2022 - 09/08/2022 Provider: Italo pitts MD Diagnosis: 1 every bedtime Last Documented On 3 4:44PM By Felice Dixon ; [facility] traMADol HCl 50 MG Oral Tablet 08/11/2022 - 08/16/2022 Provider: Italo pitts MD Diagnosis: 1-2 po q 4-6h Last Documented On 3 5:41PM By Felice Dixon ; [facility] oxyCODONE HCl 5 MG Oral Tablet 08/11/2022 - 08/16/2022 Provider: Italo pitts MD Diagnosis: 1-2 po q 4-6h Last Documented On 3 5:41PM By Felice Dixon ; [facility] Warfarin Sodium 6 MG Oral Tablet 08/11/2022 - 08/21/2022 Provider: Italo pitts MD Diagnosis: once a day Last Documented On 3 5:56PM By Felice Dixon ; [facility] Lovenox 40 MG/0.4ML Injection Solution Prefilled Syringe 08/11/2022 - 08/15/2022 Provider: Italo pitts MD Diagnosis: once a day Last Documented On 3 5:56PM By Felice Dixon ; [facility] Ondansetron HCl 4 MG Oral Tablet 08/11/2022 - 08/16/2022 Provider: Italo Dixon MD Diagnosis: [id number] Last Documented On 3 5:56PM By Felice Dixon ; [facility] Meloxicam 15 MG Oral Tablet 08/11/2022 - 08/25/2022 Provider: Italo pitts MD Diagnosis: once a day Last Documented On 3 5:56PM By Felice Dixon ; [facility] Colace 100 MG Oral Capsule 08/11/2022 - 11/09/2022 Provider: Italo pitts MD Diagnosis: 1-2 tabs daily Last Documented On 3 5:56PM By Felice Dixon ; [facility] Cefadroxil 500 MG Oral Capsule 08/11/2022 - 08/14/2022 Provider: Italo pitts MD Diagnosis: twice a day Last Documented On 3 5:41PM By Felice Dixon ; [facility] Acetaminophen 500 MG Oral Tablet 08/11/2022 - 09/10/2022 Provider: Italo Dixon MD Diagnosis: 2 three times a day Last Documented On 3 5:41PM By Felice Dixon ; [facility] traMADol HCl 50 MG Oral Tablet 08/04/2022 - 08/09/2022 Provider: Italo pitts MD Diagnosis: 1-2 po q 4-6h Last Documented On 3 5:18PM By Felice Dixon ; [facility] oxyCODONE HCl 5 MG Oral Tablet 08/04/2022 - 08/09/2022 Provider: Italo pitts MD Diagnosis: 1-2 po q 4-6h Last Documented On 3 5:18PM By Felice Dixon ; [facility] traMADol HCl 50 MG Oral Tablet 08/04/2022 - 08/09/2022 Provider: Italo pitts MD Diagnosis: 1-2 po q 4-6h Last Documented On 3 5:18PM By Felice Dixon ; [facility] Warfarin Sodium 5 MG Oral Tablet 07/05/2022 - 07/19/2022 Provider: Italo pitts MD Diagnosis: 1 every bedtime Last Documented On 3 4:39PM By Felice Dixon ; [facility] Colace 100 MG Oral Capsule 06/17/2022 - 09/15/2022 Provider: Italo pitts MD Diagnosis: 1-2 tabs daily Last Documented On 3 3:07PM By Felice Dixon ; [facility] Cefadroxil 500 MG Oral Capsule 06/17/2022 - 06/20/2022 Provider: Italo pitts MD Diagnosis: twice a day Last Documented On 3 3:07PM By Felice Dixon ; [facility] Acetaminophen 500 MG Oral Tablet 06/17/2022 - 07/17/2022 Provider: Italo Dixon MD Diagnosis: 2 three times a day Last Documented On 3 3:07PM By Felice Dixon ; [facility] Meloxicam 15 MG Oral Tablet 06/17/2022 - 07/17/2022 Provider: Italo pitts MD Diagnosis: once a day Last Documented On 3 3:07PM By Felice Dixon ; [facility] Ondansetron HCl 4 MG Oral Tablet 06/17/2022 - 06/22/2022 Provider: Italo Dixon MD Diagnosis: [id number] Last Documented On 3 3:07PM By Felice Dixon ; [facility] Lovenox 40 MG/0.4ML Injection Solution Prefilled Syringe 06/17/2022 - 06/21/2022 Provider: Italo pitts MD Diagnosis: once a day Last Documented On 3 3:08PM By Felice Dixon ; [facility] traMADol HCl 50 MG Oral Tablet 06/17/2022 - 06/22/2022 Provider: Italo pitts MD Diagnosis: 1-2 po q 4-6h Last Documented On 3 3:08PM By Felice Dixon ; [facility] oxyCODONE HCl 5 MG Oral Tablet 06/17/2022 - 06/22/2022 Provider: Italo pitts MD Diagnosis: 1-2 po q 4-6h Last Documented On 3 3:07PM By Felice Dixon ; [facility] Medications Administered Includes: Administered Medications from this encounter No Administered Medications Recorded Vital Signs Includes: Vital Signs from this encounter Vital Name 09/27/2022 09:53A Height (in) 62 Weight (lb) 117 Body Mass Index 21.4 Body Surface Area 1.5 Note: dp Last Documented: On 09/27/2022 9:54AM ; [facility] Results Includes: Results discussed during this encounter No Results Recorded For Specified Dates History of Present Illness Includes: History of Present Illness from this encounter EARNESTINE Alcala is a 67 year old female. - Allergy list reviewed - Problem list reviewed - Medication list reviewed - Previous history of new onset pain Injury is not work related or an automotive accident - No previous treatment. Social History Description Last Updated Alcohol use 10/20/2022 Last Documented On 3 9:53AM ; [facility] Yes, current smoker. 10/20/2022 Last Documented On 3 9:53AM ; [facility] Tobacco non-user 05/26/2022 Last Documented On 3 9:53AM ; [facility] Caffeine use 05/26/2022 Last Documented On 3 9:53AM ; [facility] Exercising regularly 05/26/2022 Last Documented On 3 9:53AM ; [facility] No recent change in diet 05/26/2022 Last Documented On 3 9:53AM ; [facility] Not using drugs 05/26/2022 Last Documented On 3 9:53AM ; [facility] Smoking Status Unknown Procedures and Surgical History Includes: Procedures from this encounter Procedures Code Diagnosis Performing Provider Service L ocation Service Date use of tobacco assessment performed 1000F Last Documented On 3 9:53AM ; [facility] patient screened for future fall risk: documentation of any fall with injury in past year 1100F Last Documented On 3 9:53AM ; [facility] EMG was performed 53371 Last Documented On 3 9:53AM ; [facility] an X-ray was performed 06/30/2022 BGO [id number] Last Documented On 3 9:53AM ; [facility] a CT scan was performed [id number] Last Documented On 3 9:53AM ; [facility] an MRI was performed [id number] Last Documented On 3 9:53AM ; [facility] Medical History Includes: Medical History addressed during this encounter No Medical History Recorded Family History Includes: Family History addressed during this encounter Description Last Updated No significant family history 06/30/2022 Last Documented On 3 9:53AM ; [facility] Review of Systems Includes: Review of Systems from this encounter Systemic: Not feeling tired, no recent weight loss, and no recent weight gain. Head: No headache and no sinus pain. Eyes: No vision problems, no Cataracts, no Glasses/Contacts, and no Glaucoma. Otolaryngeal: No hearing loss and no tinnitus. Cardiovascular: No chest pain or discomfort, no palpitations, no Hypertension, and no High Cholesterol. Pulmonary: No daytime asthma symptoms and no chronic cough. No wheezing. Gastrointestinal: No heartburn and no abdominal pain. No Indigestion, no Acid Reflux, no Peptic Ulcer, no GI Stomach Bleed, and no Ulcers. Endocrine: No hot flashes, no muscle weakness, no Diabetes, no Hypothyroid, and no Hyperthyroid. Hematologic: No easy bleeding, no tendency for easy bruising, and no Anemia. Musculoskeletal: No Arthritis and no lower back pain. No soft tissue swelling and no localized joint pain. Neurological: No dizziness, no convulsions, and no numbness. Psychological: No anxiety, no emotional lability, no depression, and no insomnia. Not crying for no reason. Skin: No dry skin. No Ulcers, no Scars, and no rash. Allergic and Immunologic: No complaint of seasonal allergic reaction. Mental Status Includes: Mental Status from this encounter Description No anxiety Functional Status Includes: Functional Status from this encounter No Functional Status Recorded Physical Exam Includes: Physical Exam from this encounter Allergies Includes: Active Allergies Substance Type Reaction Onset Date Resolved Date Statu s nickel allergy Allergy Skin Rashes / Eruption of skin 05/19 Active Last Documented On 4 9:45AM ; [facility] Levaquin Allergy Skin Rashes / Er uption of skin, Hives / Urticaria 06/09/2022 Active Last Documented On 4 9:45AM ; [facility] levamir Allergy Skin Rashes / Eruption of skin 3 Active Last Documented On 4 9:45AM ; [facility] Encounters Encounter Provider Location Date Check-In Time Check- Out Time Diagnosis Post Op Hank Broderick PA-C [facility] 3 9:47AM 10:35AM Insurance Includes: Active Insurance Policies Plan Name Member ID Group # Subscriber Relationship Effect drew Dates 1 - Medicare Part B [facility] [id number] Renee Ambrocio 2 - [facility] [employer] [id number] Renee Alcala Cristóbal Clinical Notes Includes: Clinical Notes from this encounter * Progress note Date Encounter Last Documented by 09/27/2022 Post Op Last documented on 09/27/2022; 12:59 PM, Hank Broderick PA-C; [facility] Active Problems & Conditions - Joint Pain in Both Hips Chief Complaint The Chief Complaint is: BILATER HIP PAIN. Referred Here Referred by. History of Present Illness Renee Alcala is a 67 year old female. - Allergy list reviewed - Problem list reviewed - Medication list reviewed - Previous history of new onset pain Injury is not work related or an automotive accident - No previous treatment. Current Medication - Ascorbic Acid 500 MG Oral Capsule take as directed 0 days, 0 refills - Atorvastatin Calcium 20 MG Oral Tablet take as directed 0 days, 0 refills - Colace 100 MG Oral Capsule 1-2 tabs daily, 30 days, 2 refills - Cyclobenzaprine HCl 10 MG Oral Tablet 10 days, 0 refills - Gabapentin 300 MG Oral Capsule take as directed 0 days, 0 refills - HYDROcodone-Acetaminophen 7.5-325 MG Oral Tablet 30 days, 0 refills - Hydroxychloroquine Sulfate 200 MG Oral Tablet take as directed 0 days, 0 refills - Levothyroxine Sodium 25 MCG Oral Tablet take as directed 0 days, 0 refills - Meloxicam 15 MG Oral Tablet take as directed 0 days, 0 refills - tiZANidine HCl 4 MG Oral Tablet 30 days, 0 refills - Warfarin Sodium 1 MG Oral Tablet 10 days, 0 refills - Warfarin Sodium 5 MG Oral Tablet take as directed 0 days, 0 refills - Zolpidem Tartrate 10 MG Oral Tablet 30 days, 0 refills Social History Yes, current smoker. Current diet: No recent change in diet. Caffeine use: Caffeine use. Tobacco use: Tobacco non-user. Alcohol: Alcohol use. Drug Use: Not using drugs. Habits: Exercising regularly. Allergies - levamir Reaction: Skin Rashes / Eruption of skin - Levaquin - nickel allergy Reaction: Skin Rashes / Eruption of skin (Severe) Family History No significant family history Review Of Systems Systemic: Not feeling tired, no recent weight loss, and no recent weight gain. Head: No headache and no sinus pain. Eyes: No vision problems, no Cataracts, no Glasses/Contacts, and no Glaucoma. Otolaryngeal: No hearing loss and no tinnitus. Cardiovascular: No chest pain or discomfort, no palpitations, no Hypertension, and no High Cholesterol. Pulmonary: No daytime asthma symptoms and no chronic cough. No wheezing. Gastrointestinal: No heartburn and no abdominal pain. No Indigestion, no Acid Reflux, no Peptic Ulcer, no GI Stomach Bleed, and no Ulcers. Endocrine: No hot flashes, no muscle weakness, no Diabetes, no Hypothyroid, and no Hyperthyroid. Hematologic: No easy bleeding, no tendency for easy bruising, and no Anemia. Musculoskeletal: No Arthritis and no lower back pain. No soft tissue swelling and no localized joint pain. Neurological: No dizziness, no convulsions, and no numbness. Psychological: No anxiety, no emotional lability, no depression, and no insomnia. Not crying for no reason. Skin: No dry skin. No Ulcers, no Scars, and no rash. Allergic and Immunologic: No complaint of seasonal allergic reaction. Physical Findings - Vitals taken 09/27/2022 09:53 am dp Height 62 in Weight 117 lbs Body Mass Index 21.4 kg/m2 Body Surface Area 1.5 m2 Incision well healed, well-appearing scar Mild residual hip swelling Hip ROM normal LLD 2 mm short Strength 5/5 TA/Gastroc/Quad Sensation intact to light touch throughout Palpable pulses DP/PT Tests two-view x-ray of the left hip taken today do x-rays well-appearing press-fit ADINA Assessment 6 week status post left ADINA 3 months status post right ADINA Previous Tests Laboratory Studies: Neuro-Electrical Functions: EMG. Imaging: X-Ray: An X-ray was performed 06/30/[address] [facility] Scan: CT scan. MRI Scan: An MRI was performed. Plan Fall Risk Assessment: This patient has been identified as a fall risk. Balance/gait along with postural blood pressure, vision and home fall hazards have been assessed. Medications have been reviewed, and recommendations made with regard to contributing factors for future falls. Plan of care: Consideration of vitamin D supplementation along with balance and strength training with consideration for formal physical therapy has been discussed with the patient. overall the patient is pleased with her progress, she remarks right hip has been slower to improve. Today we discussed continued patients with recovery, continued physical therapy. We will plan for follow-up one year postop for x-ray and exam Notes This dictation was done with voice recognition software and may contain errors and omissions. Practice Management Use of tobacco assessment performed and patient screened for future fall risk documentation of any fall with injury in past year. Care Team - JACKLYN JAIN MD - DISTILLING DEPARTMENT SUPERVISOR
--- OUTSIDE RECORDS SUMMARY | 2024-07-10 10:47 | XMS_ITS | Clinical Summary ---
Author Organization [facility] Address [address] [place] [address] Phone Care Team Providers Care Printing Services Coordinator Name Role Phone Gilmer ASHLEY, Italo Lau Unavailable [phone] JACKLYN JAIN MD Unavailable [phone] Reason for Visit and Chief Complaint The Chief Complaint is: BILATER HIP PAIN Problems Includes: Problems addressed during this encounter and other active Problems All Visits Onset Date Resolved Date Provider Condition S tatus Joint Pain, Localized in the Shoulder 10/20/2022 Shadia Potter PA-C Active Last Documented On 3 9:55AM ; [facility] Joint Pain in Both Hips 05/26/2022 Italo Dixon MD Active Last Documented On 3 10:52AM ; [facility] Plan of Treatment Fall Risk Assessment: This [...] with the patient. - Last Documented On 01/31/2023 8:53AM ; [facility] Patient presents today with concerns of bilateral hip discomfort primarily posterior lateral, difficulty sleeping on either side. She also complains of right thigh sensitivity, occasional numbness of the bilateral lower extremities when laying in recliner. She feels this was precipitated by reproducing the move to pull weeds in her garden. She remarks she was on the bilateral knees on the floor, attempting to sit on her feet and extend at the lumbar spine resulting in this sudden pain. I reviewed my impression with the patient she has moderately severe bilateral hip tendinitis, well-appearing x-rays today so far. She may also have lumbar nerve impingement precipitating numbness, right thigh sensitivity. Today recommend physical therapy, Medrol Konstantinpak, referral to Dr. Ronn Arteaga for further evaluation of lumbar spine. We will plan for follow-up [address] Granados with x- rays on arrival to more closely evaluate left - Last Documented On 01/31/2023 8:53AM ; [facility] Pending Tests Order Diagnosis Results Due Ordering P rovider Therapy - Physical Therapy Hip Presence of right artificial hip joint 01/31/23 Hank Broderick PA-C Last Documented On 3 8:50AM ; [facility] Referrals To Diagnosis Consult with Orthopedic Presence of right artificial hip joint Note: IHR L Spine/ EH/ MCARE Part B & [facility] [place]//gretat 02-22-23 @ 10:00AM Last Documented On 3 1:49PM ; [facility] Assessments Includes: Assessments from this encounter Findings 6-month status post left ADINA - Last Documented On 01/31/2023 8:53AM ; [facility] 8 months status post right ADINA - Last Documented On 01/31/2023 8:53AM ; [facility] Medical Equipment - Implanted Devices Includes: Current Devices No Medical Equipment Recorded Medications Includes: Medications discussed during this encounter and other current Medications Current Medications (continue as prescribed) Meloxicam 15 MG Oral Tablet 10/19/2022 Provider: Carmen Carlin NP Diagnosis: Last Documented On 3 9:55AM By Arleen Adan ; [facility] Cyclobenzaprine HCl 10 MG Oral Tablet 10/14/2022 Pro vider: JACKLYN JAIN MD Diagnosis: Last Documented On 3 9:55AM By Arleen Adan ; [facility], [facility] Zolpidem Tartrate 10 MG Oral Tablet 10/04/2022 Provi ana: JACKLYN JAIN MD Diagnosis: Last Documented On 3 9:55AM By Arleen Adan ; [facility] Hydroxychloroquine Sulfate 200 MG Oral Tablet 09/14/19 Provider: Carmen Tesfaye [employer] Diagnosis: Last Documented On 3 9:55AM By Arleen Adan ; [facility] traMADol HCl 50 MG Oral Tablet 09/09/2022 Provider: ITALO DIXON MD Diagnosis: Last Documented On 3 9:55AM By Arleen Adan ; [facility] oxyCODONE HCl 5 MG Oral Tablet 09/09/2022 Provider: ITALO DIXON MD Diagnosis: Last Documented On 3 9:55AM By Arleen Adan ; [facility] Warfarin Sodium 1 MG Oral Tablet 09/06/2022 Provider : ITALO DIXON MD Diagnosis: Last Documented On 3 9:55AM By Arleen Adan ; [facility] Warfarin Sodium 5 MG Oral Tablet 07/21/2022 Provider : Diagnosis: Last Documented On 3 10:10AM By Jocelyn Murray ; [facility] Levothyroxine Sodium 25 MCG Oral Tablet 07/21/2022 P rovider: Diagnosis: Last Documented On 3 10:09AM By Jocelyn Murray ; [facility] Gabapentin 300 MG Oral Capsule 07/21/2022 Provider: Diagnosis: Last Documented On 3 10:08AM By Jocelyn Murray ; [facility] Ascorbic Acid 500 MG Oral Capsule 07/21/2022 Provide r: Diagnosis: Last Documented On 3 10:07AM By Jocelyn Murray ; [facility] Warfarin Sodium 1 MG Oral Tablet 2022 Provider : ITALO DIXON MD Diagnosis: Last Documented On 3 9:29AM By Nirali Claire ; [facility] Hydroxychloroquine Sulfate 200 MG Oral Tablet 06/07/19 Provider: Diagnosis: Last Documented On 3 8:45AM By Jocelyn Murray ; [facility] Meloxicam 15 MG Oral Tablet 06/06/2022 Provider: Diagnosis: Last Documented On 3 8:46AM By Jocelyn Murray ; [facility] Atorvastatin Calcium 20 MG Oral Tablet 06/06/2022 Pr ovider: Diagnosis: Last Documented On 3 8:44AM By Jocelyn Murray ; [facility], [facility] Zolpidem Tartrate 10 MG Oral Tablet 05/25/2022 Provi ana: JACKLYN JAIN MD Diagnosis: Last Documented On 3 10:41AM By Sanket Saunders ; [facility], [facility] Cyclobenzaprine HCl 10 MG Oral Tablet 05/18/2022 Pro vider: JACKLYN JAIN MD Diagnosis: Last Documented On 3 10:41AM By Sanket Saunders ; [facility], [facility] HYDROcodone-Acetaminophen 7. 5-325 MG Oral Tablet 05/18/2022 Provider: JACKLYN JAIN MD Diagnosis: Last Documented On 3 10:41AM By Sanket Saunders ; [facility] tiZANidine HCl 4 MG Oral Tablet 05/05/2022 Provider: CORINNE CORCORAN MD Diagnosis: Last Documented On 3 10:41AM By Sanket Saunders ; [facility] Past Medications on file Medrol 4 MG Oral Tablet Therapy Pack 02/01/2023 - 02/08/2023 Provider: Italo Dixon MD Diagnosis: take as directed per instructions on box Last Documented On 3 11:15AM By Felice Dixon ; [facility] oxyCODONE HCl 5 MG Oral Tablet 09/09/2022 - 09/14/2022 Provider: Italo pitts MD Diagnosis: 1-2 po q 4-6h Last Documented On 3 9:06AM By Felice Dixon ; [facility] traMADol HCl 50 MG Oral Tablet 09/09/2022 - 09/14/2022 Provider: Italo pitts MD Diagnosis: 1-2 po q 4-6h Last Documented On 3 9:06AM By Felice Dixon ; [facility], [facility] Warfarin Sodium 1 MG Oral Tablet 09/06/2022 - 09/16/2022 Provider: Italo pitts MD Diagnosis: take as directed take one ta blet daily as directed by your physician Last Documented On 3 2:12PM By Felice Dixon ; [facility], [facility] traMADol HCl 50 MG Oral Tablet 09/05/2022 [...] On 3 5:56PM By Felice Dixon ; [facility] Lovenox 40 MG/0.4ML Injection Solution Prefilled Syringe 08/11/2022 - 08/15/2022 Provider: Italo pitts MD Diagnosis: once a day Last Documented On 3 5:56PM By Felice Dixon ; [facility] Ondansetron HCl 4 MG Oral Tablet 08/11/2022 - 08/16/2022 Provider: Italo Dixon MD Diagnosis: [id number] Last Documented On 3 5:56PM By Felice Dixon ; [facility] Meloxicam 15 MG Oral Tablet 08/11/2022 - 08/25/2022 Provider: Italo pitts MD Diagnosis: once a day Last Documented On 3 5:56PM By Felice Dixon ; [facility] Colace 100 MG Oral Capsule 08/11/2022 - 11/09/2022 Provider: Italo pitts MD Diagnosis: 1-2 tabs daily Last Documented On 3 5:56PM By Felice Dixon ; [facility] Cefadroxil 500 MG Oral Capsule 08/11/2022 - 08/14/2022 Provider: Italo pitts MD Diagnosis: twice a day Last Documented On 3 5:41PM By Felice Dixon ; [facility] Acetaminophen 500 MG Oral Tablet 08/11/2022 - 09/10/2022 Provider: Italo Dixon MD Diagnosis: 2 three times a day Last Documented On 3 5:41PM By Felice Dixon ; [facility] traMADol HCl 50 MG Oral Tablet 08/04/2022 - 08/09/2022 Provider: Italo pitts MD Diagnosis: 1-2 po q 4-6h Last Documented On 3 5:18PM By Felice Dixon ; [facility] oxyCODONE HCl 5 MG Oral Tablet 08/04/2022 - 08/09/2022 Provider: Italo pitts MD Diagnosis: 1-2 po q 4-6h Last Documented On 3 5:18PM By Felice Dixon ; [facility] traMADol HCl 50 MG Oral Tablet 08/04/2022 - 08/09/2022 Provider: Italo pitts MD Diagnosis: 1-2 po q 4-6h Last Documented On 3 5:18PM By Felice Dixon ; [facility] Warfarin Sodium 5 MG Oral Tablet 07/05/2022 - 07/19/2022 Provider: Italo pitts MD Diagnosis: 1 every bedtime Last Documented On 3 4:39PM By Felice Dixon ; [facility] Colace 100 MG Oral Capsule 06/17/2022 - 09/15/2022 Provider: Italo pitts MD Diagnosis: 1-2 tabs daily Last Documented On 3 3:07PM By Felice Dixon ; [facility] Cefadroxil 500 MG Oral Capsule 06/17/2022 - 06/20/2022 Provider: Italo pitts MD Diagnosis: twice a day Last Documented On 3 3:07PM By Felice Dixon ; [facility] Acetaminophen 500 MG Oral Tablet 06/17/2022 - 07/17/2022 Provider: Italo Dixon MD Diagnosis: 2 three times a day Last Documented On 3 3:07PM By Felice Dixon ; [facility], [facility] Meloxicam 15 MG Oral Tablet 06/17/2022 - 07/17/2022 Provider: Italo pitts MD Diagnosis: once a day Last Documented On 3 3:07PM By Felice Dixon ; [facility], [facility] Ondansetron HCl 4 MG Oral Tablet 06/17/2022 - 06/22/2022 Provider: Italo Dixon MD Diagnosis: [id number] Last Documented On 3 3:07PM By Felice Dixon ; [facility], [facility] Lovenox 40 MG/0.4ML Injection Solution Prefilled Syringe 06/17/2022 - 06/21/2022 Provider: Italo pitts MD Diagnosis: once a day Last Documented On 3 3:08PM By Felice Dixon ; [facility] traMADol HCl 50 MG Oral Tablet 06/17/2022 - 06/22/2022 Provider: Italo pitts MD Diagnosis: 1-2 po q 4-6h Last Documented On 3 3:08PM By Felice Dixon ; [facility] oxyCODONE HCl 5 MG Oral Tablet 06/17/2022 - 06/22/2022 Provider: Italo pitts MD Diagnosis: 1-2 po q 4-6h Last Documented On 3 3:07PM By Felice Dixon ; [facility], [facility] Medications Administered Includes: Administered Medications from this encounter No Administered Medications Recorded Vital Signs Includes: Vital Signs from this encounter Vital Name 01/31/2023 08:10A Height (in) 62 Weight (lb) 125 Body Mass Index 22.9 Body Surface Area 1.6 Last Documented: On 01/31/2023 8:10AM ; [facility], [facility] Results Includes: Results discussed during this encounter No Results Recorded For Specified Dates History of Present Illness Includes: History of Present Illness from this encounter HPI Renee Alcala is a 67 year old female. - Allergy list reviewed - Problem list reviewed - Medication list reviewed Social History Description Last Updated Tobacco non-user 05/26/2022 Last Documented On 3 7:56AM ; [facility] Caffeine use 05/26/2022 Last Documented On 3 7:56AM ; [facility] Smoking Status Unknown Procedures and Surgical History Includes: Procedures from this encounter Procedures Code Diagnosis Performing Provider Service L ocation Service Date use of tobacco assessment performed 1000F Last Documented On 3 7:56AM ; [facility] patient screened for future fall risk: documentation of any fall with injury in past year 1100F Last Documented On 3 7:56AM ; [facility] EMG was performed 38686 Last Documented On 3 7:56AM ; [facility] an X-ray was performed 06/30/2022 BGO [id number] Last Documented On 3 7:56AM ; [facility] a CT scan was performed 39121 Last Documented On 3 7:56AM ; [facility] an MRI was performed 58536 Last Documented On 3 7:56AM ; [facility] Surgical History Last Updated History of total hip replacement 023 Last Documented On 3 7:56AM ; [facility] Past Surgical History: Right shoulder ca lcium deposit removal 10/20/2022 Last Documented On 3 7:56AM ; [facility] Medical History Includes: Medical History addressed during this encounter Description Last Updated History of arthritis 10/20/2022 Last Documented On 3 7:56AM ; [facility] History of Fractures 10/20/2022 Last Documented On 3 7:56AM ; [facility] History of History of Rheumatology 10/20 Last Documented On 3 7:56AM ; [facility] History of osteoporosis 10/20/2022 Last Documented On 3 7:56AM ; [facility] History of Previous Fractures 10/20/2022 Last Documented On 3 7:56AM ; [facility], [facility] History of Thyroid Disease 10/20/2022 Last Documented On 3 7:56AM ; [facility] Family History Includes: Family History addressed during this encounter Description Last Updated Family history of cancer 10/20/2022 Last Documented On 3 7:56AM ; [facility], [facility] Family history of heart disease 10/21/19 Last Documented On 3 7:56AM ; [facility] Family history of osteoporosis 3 Last Documented On 3 7:56AM ; [facility] Family history of rheumatoid arthritis 0 10/20/2022 Last Documented On 3 7:56AM ; [facility], [facility] Family history of systemic hypertension 10/20/2022 Last Documented On 3 7:56AM ; [facility], [facility] Family history of thromboembolic disease 10/20/2022 Last Documented On 3 7:56AM ; [facility], [facility] Stroke / Seizures 10/20/2022 Last Documented On 3 7:56AM ; [facility] Review of Systems Includes: Review of Systems [...] Active Last Documented On 4 9:45AM ; [facility], [facility] Levaquin Allergy Skin Rashes / Er uption of skin, Hives / Urticaria 06/09/2022 Active Last Documented On 4 9:45AM ; [facility], [facility] levamir Allergy Skin Rashes / Eruption of skin 3 Active Last Documented On 4 9:45AM ; [facility], [facility] Encounters Encounter Provider Location Date Check-In Time Check- Out Time Diagnosis Follow Up Hank Broderick PA-C [facility] 3 7:47AM 8:47AM Insurance Includes: Active Insurance Policies Plan Name Member ID Group # Subscriber Relationship Effect drew Dates 1 - Medicare Part [facility] [id number] Renee Ambrocio 2 - [facility] [employer] [id number] Renee Ambrocio Clinical Notes Includes: Clinical Notes from this encounter * Progress note Date Encounter Last Documented by 01/31/2023 Follow Up Last documented on 01/31/2023; 8:53 AM, Hank Broderick PA-C; [facility], [facility] Active Problems & Conditions - Joint Pain in Both Hips - Joint Pain, Localized in the Shoulder Chief Complaint The Chief Complaint is: BILATER HIP PAIN. Referred Here Referred by. History of Present Illness Renee Alcala is a 67 year old female. - Allergy list reviewed - Problem list reviewed - Medication list reviewed Current Medication - Ascorbic Acid 500 MG Oral Capsule take as directed 0 days, 0 refills - Atorvastatin Calcium 20 MG Oral Tablet take as directed 0 days, 0 refills - Cyclobenzaprine HCl 10 MG Oral Tablet 10 days, 0 refills - Cyclobenzaprine HCl 10 MG Oral Tablet 10 days, 0 refills - Gabapentin 300 MG Oral Capsule take as directed 0 days, 0 refills - HYDROcodone-Acetaminophen 7.5-325 MG Oral Tablet 30 days, 0 refills - Hydroxychloroquine Sulfate 200 MG Oral Tablet take as directed 0 days, 0 refills - Hydroxychloroquine Sulfate 200 MG Oral Tablet 90 days, 0 refills - Levothyroxine Sodium 25 MCG Oral Tablet take as directed 0 days, 0 refills - Meloxicam 15 MG Oral Tablet take as directed 0 days, 0 refills - Meloxicam 15 MG Oral Tablet 90 days, 0 refills - oxyCODONE HCl 5 MG Oral Tablet 5 days, 0 refills - tiZANidine HCl 4 MG Oral Tablet 30 days, 0 refills - traMADol HCl 50 MG Oral Tablet 6 days, 0 refills - Warfarin Sodium 1 MG Oral Tablet 10 days, 0 refills - Warfarin Sodium 1 MG Oral Tablet 10 days, 0 refills - Warfarin Sodium 5 MG Oral Tablet take as directed 0 days, 0 refills - Zolpidem Tartrate 10 MG Oral Tablet 30 days, 0 refills - Zolpidem Tartrate 10 MG Oral Tablet 30 days, 0 refills Past Medical/Surgical History Reported: History of Fractures. Diagnoses: Thyroid Disease History of Rheumatology. Osteoporosis. Arthritis Surgical: - Past Surgical History: Right shoulder calcium deposit removal - Previous Fractures - Total hip replacement Social History Caffeine use: Caffeine use. Tobacco use: Tobacco non-user. Allergies - levamir Reaction: Skin Rashes / Eruption of skin - Levaquin Reaction: Hives / Urticaria, Skin Rashes / Eruption of skin - nickel allergy Reaction: Skin Rashes / Eruption of skin (Severe) Family History Cancer Heart disease Stroke / Seizures Systemic hypertension Thromboembolic disease Osteoporosis Rheumatoid arthritis Review Of Systems Systemic: Not feeling tired, [...] allergic reaction. Physical Findings - Vitals taken 01/31/2023 08:10 am Height 62 in Weight 125 lbs Body Mass Index 22.9 kg/m2 Body Surface Area 1.6 m2 Bilateral hip exam incision well healed, well-appearing scar Mild residual hip swelling Hip ROM normal, equal, painless negative logroll LLD 2 mm short left good straight leg raise bilaterally Strength 5/5 TA/Gastroc/Quad hip abductor strength 4 -/5 bilateral Sensation intact to light touch throughout Palpable pulses DP/PT Tests 2 view x-ray of the bilateral hips taken today demonstrate well-appearing press- fit ADINA's. Right proximal femur has cerclage wiring in stable acceptable position after very close evaluation of left hip x-rays, comparing Intra-Op and 6-week postop films, cannot rule out very subtle subsidence likely rotational though Assessment 6-month status post left ADINA 8 months status post right ADINA Previous Tests Laboratory Studies: Neuro-Electrical Functions: EMG. Imaging: X-Ray: An X-ray was performed 06/30/2022 [facility]. CT Scan: CT scan. MRI Scan: An MRI was performed. Plan StartCited - Presence of right artificial hip joint Therapy/Physical Therapy: Hip Instructions: See PT order attached EndCited Fall Risk Assessment: This patient has been [...] therapy has been discussed with the patient. Patient presents today with concerns of bilateral hip discomfort primarily posterior lateral, difficulty sleeping on either side. She also complains of right thigh sensitivity, occasional numbness of the bilateral lower extremities when laying in recliner. She feels this was precipitated by reproducing the move to pull weeds in her garden. She remarks she was on the bilateral knees on the floor, attempting to sit on her feet and extend at the lumbar spine resulting in this sudden pain. I reviewed my impression with the patient she has moderately severe bilateral hip tendinitis, well-appearing x-rays today so far. She may also have lumbar nerve impingement precipitating numbness, right thigh sensitivity. Today recommend physical therapy, Medrol Dosepak, referral to Dr. Ronn Arteaga for further evaluation of lumbar spine. We will plan for follow-up [address] Granados with x- rays on arrival to more closely evaluate left Notes This dictation was done with voice recognition software and may contain errors and omissions. Practice Management Use of tobacco assessment performed and patient screened for future fall risk documentation of any fall with injury in past year. Care Team - JACKLYN JAIN MD - DEVELOPMENT REPRESENTATIVE
--- OUTSIDE RECORDS SUMMARY | 2024-07-10 10:47 | XMS_ITS ---
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 Crew Support Worker Name Role Phone Gilmer ASHLEY, Italo Lau Unavailable + [phone] SUSY ASHLEY, JACKLYN Bashir Unavailable [phone] Problems Includes: Active, inactive, and resolved Problems All Visits Onset Date Resolved Date Provider Condition S tatus Joint Pain, Localized in the Shoulder 10/20/2022 Shadia Potter PA-C Active Last Documented On 3 9:55AM ; [facility] Joint Pain in Both Hips 05/26/2022 Italo Dixon MD Active Last Documented On 3 10:52AM ; [facility] Plan of Treatment Findings Encounter Date Patient screened for future fall risk: documentation of any fall with injury in past year Follow Up with Chuck Cortez PA-C 10/12/2023 Last Documented On 4 10:44AM ; [facility] Referrals To Diagnosis Consult with Orthopedic Presence of right artificial hip joint Note: IHR L Spine/ EH/ MCARE Part B & [facility]//kcappt 02-22-23 @ 10:00AM Last Documented On 3 1:49PM ; [facility], [facility] Education and Decision Aids were provided during visit for: Patient education about a sp ecial diet Last Documented On 3 2:56PM ; [facility], [facility] Patient education about a sp ecial diet Last Documented On 3 10:56AM ; [facility], [facility] Assessments Includes: Assessments for all patient encounters Findings Encounter Date Underweight Physician Specified with Yamila Dixon MD 05/26/2022 Last Documented On 3 12:39PM ; [facility], [facility] Instructions Includes: Instructions for all patient encounters Education and Decision Aids were provided during visit for: Patient education about a sp ecial diet Last Documented On 3 2:56PM ; [facility], [facility] Patient education about a sp ecial diet Last Documented On 3 10:56AM ; [facility], [facility] Medical Equipment - Implanted Devices Includes: Current and historical Devices No Medical Equipment Recorded Medications Includes: Current and historical Medications Current Medications (continue as prescribed) Meloxicam 15 MG Oral Tablet 10/19/2022 Provider: Carmen Carlin NP Diagnosis: Last Documented On 3 9:55AM By Arleen Adan ; [facility], [facility] Cyclobenzaprine HCl 10 MG Oral Tablet 10/14/2022 Pro vider: JACKLYN JAIN MD Diagnosis: Last Documented On 3 9:55AM By Arleen Adan ; [facility], [facility] Zolpidem Tartrate 10 MG Oral Tablet 10/04/2022 Provi ana: JACKLYN JAIN MD Diagnosis: Last Documented On 3 9:55AM By Arleen Adan ; [facility], [facility] Hydroxychloroquine Sulfate 200 MG Oral Tablet 09/14/19 Provider: Carmen Carlin NP Diagnosis: Last Documented On 3 9:55AM By Arleen Adan ; [facility], [facility] traMADol HCl 50 MG Oral Tablet 09/09/2022 Provider: ITALO DIXON MD Diagnosis: Last Documented On 3 9:55AM By Arleen Adan ; [facility], [facility] oxyCODONE HCl 5 MG Oral Tablet 09/09/2022 Provider: ITALO DIXON MD Diagnosis: Last Documented On 3 9:55AM By Arleen Adan ; [facility], [facility] Warfarin Sodium 1 MG Oral Tablet 09/06/2022 Provider : ITALO DIXON MD Diagnosis: Last Documented On 3 9:55AM By Arleen Adan ; [facility], [facility] Warfarin Sodium 5 MG Oral Tablet 07/21/2022 Provider : Diagnosis: Last Documented On 3 10:10AM By Jocelyn Murray ; [facility], [facility] Levothyroxine Sodium 25 MCG Oral Tablet 07/21/2022 P rovider: Diagnosis: Last Documented On 3 10:09AM By Jocelyn Murray ; [facility] Gabapentin 300 MG Oral Capsule 07/21/2022 Provider: Diagnosis: Last Documented On 3 10:08AM By Jocelyn Murray ; [facility], [facility] Ascorbic Acid 500 MG Oral Capsule 07/21/2022 Provide r: Diagnosis: Last Documented On 3 10:07AM By Jocelyn Murray ; [facility] Warfarin Sodium 1 MG Oral Tablet 2022 Provider : ITALO DIXON MD Diagnosis: Last Documented On 3 9:29AM By Nirali Claire ; [facility], [facility] Hydroxychloroquine Sulfate 200 MG Oral Tablet 06/07/19 Provider: Diagnosis: Last Documented On 3 8:45AM By Jocelyn Murray ; [facility], [facility] Meloxicam 15 MG Oral Tablet 06/06/2022 Provider: Diagnosis: Last Documented On 3 8:46AM By Jocelyn Murray ; [facility], [facility] Atorvastatin Calcium 20 MG Oral Tablet 06/06/2022 Pr ovider: Diagnosis: Last Documented On 3 8:44AM By Jocelyn Murray ; [facility], [facility] Zolpidem Tartrate 10 MG Oral Tablet 05/25/2022 Provi ana: JACKLYN JAIN MD Diagnosis: Last Documented On 3 10:41AM By Sanket Saunders ; [facility], [facility] Cyclobenzaprine HCl 10 MG Oral Tablet 05/18/2022 Pro vider: JACKLYN JAIN MD Diagnosis: Last Documented On 3 10:41AM By Sanket Saunders ; [facility], [facility] HYDROcodone-Acetaminophen 7. 5-325 MG Oral Tablet 05/18/2022 Provider: JACKLYN JAIN MD Diagnosis: Last Documented On 3 10:41AM By Sanket Saunders ; [facility], [facility] tiZANidine HCl 4 MG Oral Tablet 05/05/2022 Provider: CORINNE CORCORAN MD Diagnosis: Last Documented On 3 10:41AM By Sanket Saunders ; [facility] Past Medications on file Medrol 4 MG [...] On 3 9:06AM By Felice Dixon ; [facility] Warfarin Sodium 1 MG Oral Tablet 09/06/2022 - 09/16/2022 Provider: Italo pitts MD Diagnosis: take as directed take one ta blet daily as directed by your physician Last Documented On 3 2:12PM By Felice Dixon ; [facility] Warfarin Sodium 1 MG Oral Tablet 09/06/2022 - 09/06/2022 Provider: Italo pitts MD Diagnosis: take as directed take one ta blet daily as directed by your physician Last Documented On 3 2:01PM By Felice Dixon ; [facility] traMADol HCl 50 MG Oral [...] On 3 5:41PM By Felice Dixon ; [facility] Aspirin 81 MG Oral Tablet Delayed Release 08/11/2022 - 08/11/2022 Provider: Italo Dixon MD Diagnosis: twice a day Last Documented On 3 5:48PM By Felice Dixon ; [facility] oxyCODONE HCl 5 MG Oral Tablet 08/11/2022 - 08/16/2022 Provider: Italo pitts MD Diagnosis: 1-2 po q 4-6h Last Documented On 3 5:41PM By Felice Dixon ; [facility] Warfarin Sodium 6 MG Oral Tablet 08/11/2022 - 08/21/2022 Provider: Italo pitst MD Diagnosis: once a day Last Documented On 3 5:56PM By Felice Dixon ; [facility] Lovenox 40 MG/0.4ML Injection Solution Prefilled Syringe 08/11/2022 - 08/15/2022 Provider: Italo pitts MD Diagnosis: once a day Last Documented On 3 5:56PM By Felice Dixon ; [facility] Ondansetron HCl 4 MG Oral Tablet 08/11/2022 - 08/16/2022 Provider: Italo Dixon MD Diagnosis: [id number] Last Documented On 3 5:56PM By Felice Dixon ; [facility] Meloxicam 15 MG Oral Tablet 08/11/2022 - 08/25/2022 Provider: Italo pitts MD Diagnosis: once a day Last Documented On 3 5:56PM By Felice Dixon ; [facility] Colace 100 MG Oral Capsule 08/11/2022 - 11/09/2022 Provider: Italo pitts MD Diagnosis: 1-2 tabs daily Last Documented On 3 5:56PM By Felice Dixon ; [facility] Cefadroxil 500 MG Oral Capsule [...] HCl 5 MG Oral Tablet 08/04/2022 - 08/04/2022 Provider: Italo pitts MD Diagnosis: 1-2 po q 4-6h Last Documented On 3 5:05PM By Felice Dixon ; [facility] oxyCODONE HCl 5 MG Oral Tablet 08/04/2022 - 08/04/2022 Provider: Italo pitts MD Diagnosis: 1-2 po q 4-6h Last Documented On 3 5:03PM By Felice Dixon ; [facility] [...] HCl 50 MG Oral Tablet 08/04/2022 - 08/04/2022 Provider: Italo pitts MD Diagnosis: 1-2 po q 4-6h Last Documented On 3 5:03PM By Felice Dixon ; [facility] Warfarin Sodium 5 MG Oral Tablet 07/05/2022 - 07/19/2022 Provider: Italo pitts MD Diagnosis: 1 every bedtime Last Documented On 3 4:39PM By Felice Dixon ; [facility] Warfarin Sodium 1 MG Oral Tablet 2022 - 06/30/2022 Provider: Itlao pitts MD Diagnosis: take as directed take one ta blet daily as directed by your physician Last Documented On 3 9:29AM By Nirali Claire ; [facility] Colace 100 MG Oral Capsule 06/17/2022 - 09/15/2022 Provider: Italo pitts MD Diagnosis: 1-2 tabs daily Last Documented On 3 3:07PM By Felice Dixon ; [facility] Warfarin Sodium 5 MG Oral Tablet 06/17/2022 - 06/30/2022 Provider: Italo pitts MD Diagnosis: 1 every bedtime Last Documented On 3 9:29AM By Nirali Claire ; [facility] Cefadroxil 500 MG Oral Capsule 06/17/2022 - 06/20/2022 Provider: Italo pitts MD Diagnosis: twice a day Last Documented On 3 3:07PM By Felice Dixon ; [facility] Acetaminophen 500 MG Oral Tablet 06/17/2022 - 07/17/2022 Provider: Italo Dixon MD Diagnosis: 2 three times a day Last Documented On 3 3:07PM By Felice Dixon ; [facility] Meloxicam 15 MG Oral Tablet 06/17/2022 - 07/17/2022 Provider: Italo pitts MD Diagnosis: once a day Last Documented On 3 3:07PM By Felice Dixon ; [facility] Ondansetron HCl 4 MG Oral Tablet 06/17/2022 - 06/22/2022 Provider: Italo Dixon MD Diagnosis: [id number] Last Documented On 3 3:07PM By Felice Dixon ; [facility] Lovenox 40 MG/0.4ML Injection Solution Prefilled Syringe 06/17/2022 - 06/21/2022 Provider: Italo pitts MD Diagnosis: once a day Last Documented On 3 3:08PM By Felice Dixon ; [facility], [facility] traMADol HCl 50 MG Oral Tablet 06/17/2022 - 06/22/2022 Provider: Italo pitts MD Diagnosis: 1-2 po q 4-6h Last Documented On 3 3:08PM By Felice Dixon ; [facility] oxyCODONE HCl 5 MG Oral Tablet 06/17/2022 - 06/22/2022 Provider: Italo pitts MD Diagnosis: 1-2 po q 4-6h Last Documented On 3 3:07PM By Felice Dixon ; [facility], [facility] Quercetin 500 MG Oral Capsule 06/06/2022 - 07/21/2022 Provider: Diagnosis: Last Documented On 3 10:11AM By Jocelyn Murray ; [facility], [facility] Nitrofurantoin Monohyd Macro 100 MG Oral Capsule 06/06/2022 - 07/21/2022 Provider: Diagnosis: Last Documented On 3 10:11AM By Jocelyn Murray ; [facility], [facility] Levothyroxine Sodium 100 MCG Oral Tablet 06/06/2022 - 07/21/2022 Provider: Diagnosis: Last Documented On 3 10:09AM By Jocelyn Murray ; [facility], [facility] Fosamax Plus D 70-5600 MG-UNIT Oral Tablet 06/06/2022 - 07/21/2022 Provider: Diagnosis: Last Documented On 3 10:11AM By Jocelyn Murray ; [facility], [facility] Aspirin Adult Low Dose 81 MG Oral Tablet Delayed Release 06/06/2022 - 07/21/2022 Provider: Diagnosis: Last Documented On 3 10:10AM By Jocelyn Murray ; [facility], [facility] Cyclobenzaprine HCl 10 MG Or al Tablet 05/18/2022 - 05/26/2022 Provider: JACKLYN JAIN MD Diagnosis: Last Documented On 3 11:22AM By Sanket Saunders ; [facility], [facility] tiZANidine HCl 4 MG Oral Tablet 05/05/2022 - 3 Provider: CORINNE CORCORAN MD Diagnosis: Last Documented On 3 11:22AM By Sanket Saunders ; [facility] Zolpidem Tartrate 10 MG Oral Tablet 04/25/2022 - 05/26/2022 Provider: JACKLYN JAIN MD Diagnosis: Last Documented On 3 11:22AM By Sanket Saunders ; [facility] Zolpidem Tartrate 10 MG Oral Tablet 04/25/2022 - 07/21/2022 Provider: JACKLYN JAIN MD Diagnosis: Last Documented On 3 10:12AM By Jocelyn Murray ; [facility] Cyclobenzaprine HCl 10 MG Or al Tablet 04/20/2022 - 05/26/2022 Provider: Carmen Carlin NP Diagnosis: Last Documented On 3 11:22AM By Sanket Saunders ; [facility] Cyclobenzaprine HCl 10 MG Or al Tablet 04/20/2022 - 05/26/2022 Provider: Carmen Carlin NP Diagnosis: Last Documented On 3 11:22AM By Sanket Saunders ; [facility] predniSONE 20 MG Oral Tablet 04/18/2022 - 05/26/2022 P rovider: Diagnosis: Last Documented On 3 11:22AM By Sanket Saunders ; [facility] predniSONE 20 MG Oral Tablet 04/18/2022 - 06/06/2022 P rovider: Diagnosis: Last Documented On 3 8:48AM By Jocelyn Murray ; [facility] tiZANidine HCl 4 MG Oral Tablet 04/18/2022 - 3 Provider: Diagnosis: Last Documented On 3 11:22AM By Sanket Saunders ; [facility] tiZANidine HCl 4 MG Oral Tablet 04/18/2022 - 3 Provider: Diagnosis: Last Documented On 3 11:22AM By Sanket Saunders ; [facility] Medications Administered Includes: Administered Medications in patient's chart No Administered Medications Recorded Vital Signs Includes: Vital Signs from 07/11/2023 through 07/10/2024 Vital Name 10/12/2023 09:46A Height (in) 62 Weight (lb) 125 Body Mass Index 22.9 Body Surface Area 1.6 Note: KL Last Documented: On 10/12/2023 9:46AM ; [facility] Results Includes: Results from 07/11/2023 through 07/10/2024 No Results Recorded For Specified Dates History of Present Illness History of Present Illness not supported for this document type No History of Present Illness Recorded Social History Description Last Updated Not a current smoker. former 10/20/2022 Last Documented On 3 10:20AM ; [facility] Not using alcohol former 10/20/2022 Last Documented On 3 10:20AM ; [facility] Tobacco non-user 05/26/2022 Last Documented On 3 12:39PM ; [facility] Caffeine use 05/26/2022 Last Documented On 3 12:39PM ; [facility] Exercising regularly 05/26/2022 Last Documented On 3 12:39PM ; [facility] No recent change in diet 05/26/2022 Last Documented On 3 12:39PM ; [facility] Not using drugs 05/26/2022 Last Documented On 3 12:39PM ; [facility] Smoking Status Unknown Procedures and Surgical History Includes: Procedures from 07/11/2023 through 07/10/2024 Procedures Code Diagnosis Performing Provider Service Location Service Date HIP BILATERAL [address] Paresthesia of skin, Presence of artificial hip joint, bilateral Chuck Cortez PA-C [facility] 10/12/2023 Last Documented On 4 2:03PM ; [facility] Surgical History Last Updated History of total hip replacement 023 Last Documented On 3 10:20AM ; [facility] Past Surgical History: Right shoulder ca lcium deposit removal 10/20/2022 Last Documented On 3 10:20AM ; [facility] Medical History Includes: Medical History in patient's chart Description Last Updated History of arthritis 10/20/2022 Last Documented On 3 10:20AM ; [facility], [facility] History of Fractures 10/20/2022 Last Documented On 3 10:20AM ; [facility], [facility] History of History of Rheumatology 10/20 Last Documented On 3 10:20AM ; [facility], [facility] History of osteoporosis 10/20/2022 Last Documented On 3 10:20AM ; [facility], [facility] History of Previous Fractures 10/20/2022 Last Documented On 3 10:20AM ; [facility], [facility] History of Thyroid Disease 10/20/2022 Last Documented On 3 10:20AM ; [facility], [facility] Family History Includes: Family History in patient's chart Description Last Updated Family history of cancer 10/20/2022 Last Documented On 3 10:20AM ; [facility], [facility] Family history of heart disease 10/21/19 Last Documented On 3 10:20AM ; [facility], [facility] Family history of osteoporosis 3 Last Documented On 3 10:20AM ; [facility], [facility] Family history of rheumatoid arthritis 0 10/20/2022 Last Documented On 3 10:20AM ; [facility], [facility] Family history of systemic hypertension 10/20/2022 Last Documented On 3 10:20AM ; [facility], [facility] Family history of thromboembolic disease 10/20/2022 Last Documented On 3 10:20AM ; [facility], [facility] Stroke / Seizures 10/20/2022 Last Documented On 3 10:20AM ; [facility], [facility] No significant family history 06/30/2022 Last Documented On 3 1:09PM ; [facility], [facility] Review of Systems Review of Systems not supported for this document type No Review of Systems Recorded Mental Status Description No anxiety Functional Status No Functional Status Recorded Physical Exam Physical Exam not supported for this document type No Physical Exam Recorded Allergies Includes: Active, inactive, and resolved Allergies Substance Type Reaction Onset Date Resolved Date Statu s nickel allergy Allergy Skin Rashes / Eruption of skin 05/19 Active Last Documented On 4 9:45AM ; [facility], [facility] Levaquin Allergy Skin Rashes / Er uption of skin, Hives / Urticaria 06/09/2022 Active Last Documented On 4 9:45AM ; [facility], [facility] levamir Allergy Skin Rashes / Eruption of skin Active Last Documented On 4 9:45AM ; [facility], [facility] Encounters Includes: Encounters from 07/11/2023 through 07/10/2024 Encounter Provider Location Date Check-In Time Check-Out Time Diagnosis Follow Up Chuck Cortez PA-C [facility] 4 9:36AM 10:43AM Insurance Includes: Active Insurance Policies Plan Name Member ID Group # Subscriber Relationship Effect drew Dates 1 - Medicare Part B [facility] [id number] Renee Ambrocio 2 - [facility] [employer] [id number] Renee Ambrocio Clinical Notes Includes: Signed Clinical Notes starting from 03/03/2022 * Progress note Date Encounter Last Documented by 10/12/2023 Follow Up Last documented on 10/12/2023; 10:44 AM, Chuck Cortez PA-C; [facility], [facility] Active Problems & Conditions - Joint Pain in Both Hips - Joint Pain, Localized in the Shoulder Chief Complaint The Chief Complaint is: BILATER HIP PAIN. Referred Here Referred by. History of Present Illness Renee Alcala is a 68 year old female. - Allergy list reviewed - Problem list reviewed - Medication list reviewed - - Review of medications documented Current Medication - Ascorbic Acid 500 MG [...] Fractures - Total hip replacement Social History Not a current smoker. former. Current diet: No recent change in diet. Caffeine use: Caffeine use. Tobacco use: Tobacco non-user. Alcohol: Not using alcohol former. Drug Use: Not using drugs. Habits: Exercising regularly. Allergies - levamir Reaction: Skin Rashes / Eruption of skin - Levaquin Reaction: Hives / Urticaria, Skin Rashes / Eruption of skin - nickel allergy Reaction: Skin Rashes / Eruption of skin (Severe) Family History Cancer Heart disease No significant family history Stroke / Seizures Systemic hypertension Thromboembolic disease [...] and no abdominal pain. No Indigestion, no Peptic Ulcer, no GI Stomach Bleed, no Ulcers, and no Acid Reflux. Endocrine: No hot flashes, no muscle weakness, [...] allergic reaction. Physical Findings - Vitals taken 10/12/2023 09:46 am KL Height 62 in Weight 125 lbs Body Mass Index 22.9 kg/m2 Body Surface Area 1.6 m2 Patient alert and oriented Healthy weight Normal gait LLD [0mm] Skin clean, dry and intact [No] TTP greater trochanter, gluteus medius musculature Right hip Flexion [125], IR [40], ER [50] Straight leg raise [without difficulty] Abductor Strength [5/5] Strenght [5/5] TA, Gastroc, Quad Sensation intact to light touch throughout Palpable puslses DP/PT Skin clean, dry and intact [No] TTP greater trochanter, gluteus medius musculature Left hip Flexion [125], IR [40], ER [50] Straight leg raise [without difficulty] Abductor Strength [5/5] Strenght [5/5] TA, Gastroc, Quad Sensation intact to light touch throughout Palpable puslses DP/PT Tests Three views of the bilateral hips taken today demonstrates well-fixed well- positioned total hip arthroplasties. No sign of loosening or prosthetic complications Assessment 1 year post op bilateral hip Right leg paresthesia Previous Tests Laboratory Studies: Neuro-Electrical Functions: EMG. Imaging: X-Ray: An X-ray was performed 06/30/2022 [facility]. CT Scan: CT scan. MRI Scan: An MRI was performed. Counseling/Education - Tobacco non-user - Use of tobacco assessment performed Plan - Patient screened for future fall risk: documentation of any fall with injury in past year Fall Risk Assessment: This patient has been [...] has been discussed with the patient. Patient overall doing relatively well. She is to continue physical therapy and home exercise program. Continue with ad leticia activity. Follow up in the office in 3-5 years or as needed. Patient also complaining of right leg paresthesia down into her toes. Recommend she follow back up with Dr. Silva Notes This dictation was done with voice recognition software and may contain errors and omissions. Practice Management Use of tobacco assessment performed and patient screened for future fall risk documentation of any fall with injury in past year. Care Team - JACKLYN JAIN MD - LIBRARY ASSOCIATE
--- OUTSIDE RECORDS SUMMARY | 2024-07-10 10:47 | XMS_ITS | Clinical Summary ---
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 Name Role Phone Gilmer ASHLEY, Italo Lau Unavailable [phone] JACKLYN JAIN MD Unavailable [phone] Reason for Visit and Chief Complaint The Chief Complaint is: BILATER HIP PAIN Problems Includes: Problems addressed during this encounter and other active Problems All Visits Onset Date Resolved Date Provider Condition S tatus Joint Pain, Localized in the Shoulder 10/20/2022 Shadia Potter PA-C Active Last Documented On 3 9:55AM ; [facility] Joint Pain in Both Hips 05/26/2022 Italo Dixon MD Active Last Documented On 3 10:52AM ; [facility] Plan of Treatment - Patient screened for future fall risk: documentation of any fall with injury in past year - Last Documented On 10/12/2023 10:44AM ; [facility] Fall Risk Assessment: This patient has been [...] with the patient. - Last Documented On 10/12/2023 10:44AM ; [facility] Patient overall doing relatively well. She is to continue physical therapy and home exercise program. Continue with ad leticia activity. Follow up in the office in 3-5 years or as needed. Patient also complaining of right leg paresthesia down into her toes. Recommend she follow back up with Dr. Silva - Last Documented On 10/12/2023 10:44AM ; [facility] Assessments Includes: Assessments from this encounter Findings 1 year post op bilateral hip - Last Documented On 10/12/2023 10:44AM ; [facility] Right leg paresthesia - Last Documented On 10/12/2023 10:44AM ; [facility], [facility] Medical Equipment - Implanted Devices Includes: Current Devices No Medical Equipment Recorded Medications Includes: Medications discussed during this encounter and other current Medications Current Medications (continue as prescribed) Meloxicam 15 MG Oral Tablet 10/19/2022 Provider: Carmen Carlin NP Diagnosis: Last Documented On 3 9:55AM By Arleen Adan ; [facility] Cyclobenzaprine HCl 10 MG Oral Tablet 10/14/2022 Pro vider: JACKLYN JAIN MD Diagnosis: Last Documented On 3 9:55AM By Arleen Adan ; [facility] Zolpidem Tartrate 10 MG Oral Tablet 10/04/2022 Provi ana: JACKLYN JAIN MD Diagnosis: Last Documented On 3 9:55AM By Arleen Adan ; [facility] Hydroxychloroquine Sulfate 200 MG Oral Tablet 09/14/19 Provider: Carmen Carlin NP Diagnosis: Last Documented On 3 9:55AM By Arleen Adan ; [facility] traMADol HCl 50 MG Oral Tablet 09/09/2022 Provider: ITALO DIXON MD Diagnosis: Last Documented On 3 9:55AM By Arleen Adan ; [facility] oxyCODONE HCl 5 MG Oral Tablet 09/09/2022 Provider: ITALO DIXON MD Diagnosis: Last Documented On 3 9:55AM By Arleen Adan ; [facility] Warfarin Sodium 1 MG Oral Tablet 09/06/2022 Provider : ITALO DIXON MD Diagnosis: Last Documented On 3 9:55AM By Arleen Adan ; [facility] Warfarin Sodium 5 MG Oral Tablet 07/21/2022 Provider : Diagnosis: Last Documented On 3 10:10AM By Jocelyn Murray ; [facility] Levothyroxine Sodium 25 MCG Oral Tablet 07/21/2022 P rovider: Diagnosis: Last Documented On 3 10:09AM By Jocelyn Murray ; [facility] Gabapentin 300 MG Oral Capsule 07/21/2022 Provider: Diagnosis: Last Documented On 3 10:08AM By Jocelyn Murray ; [facility] Ascorbic Acid 500 MG Oral Capsule 07/21/2022 Provide r: Diagnosis: Last Documented On 3 10:07AM By Jocelyn Murray ; [facility] Warfarin Sodium 1 MG Oral Tablet 2022 Provider : ITALO DIXON MD Diagnosis: Last Documented On 3 9:29AM By Nirali Claire ; [facility] Hydroxychloroquine Sulfate 200 MG Oral Tablet 06/07/19 Provider: Diagnosis: Last Documented On 3 8:45AM By Jocelyn Murray ; [facility] Meloxicam 15 MG Oral Tablet 06/06/2022 Provider: Diagnosis: Last Documented On 3 8:46AM By Jocelyn Murray ; [facility] Atorvastatin Calcium 20 MG Oral Tablet 06/06/2022 Pr ovider: Diagnosis: Last Documented On 3 8:44AM By Jocelyn Murray ; [facility] Zolpidem Tartrate 10 MG Oral Tablet 05/25/2022 Provi ana: JACKLYN JAIN MD Diagnosis: Last Documented On 3 10:41AM By Sanket Saunders ; [facility] Cyclobenzaprine HCl 10 MG Oral Tablet 05/18/2022 Pro vider: JACKLYN JAIN MD Diagnosis: Last Documented On 3 10:41AM By Sanket Saunders ; [facility] HYDROcodone-Acetaminophen 7. 5-325 MG Oral Tablet 05/18/2022 Provider: JACKLYN JAIN MD Diagnosis: Last Documented On 3 10:41AM By Sanket Saunders ; [facility] tiZANidine HCl 4 MG Oral Tablet 05/05/2022 Provider: CORINNE CORCORAN MD Diagnosis: Last Documented On 3 10:41AM By Sanket Saunders ; [facility] Past Medications on file Medrol [...] On 3 9:06AM By Felice Dixon ; [facility] Warfarin Sodium 1 MG Oral Tablet 09/06/2022 - 09/16/2022 Provider: Italo pitts MD Diagnosis: take as directed take one ta blet daily as directed by your physician Last Documented On 3 2:12PM By Felice Dixon ; [facility] traMADol HCl 50 MG Oral Tablet 09/05/2022 - 09/10/2022 Provider: Italo pitts MD Diagnosis: 1-2 po q 4-6h Last Documented On 3 12:12PM By Felice Dixon ; [facility] Warfarin Sodium 4 MG Oral Tablet 08/25/2022 - 09/08/2022 Provider: Italo pitts MD Diagnosis: 1 every bedtime Last Documented On 3 4:44PM By Felice Dixon ; [facility] traMADol HCl 50 MG Oral Tablet 08/11/2022 - 08/16/2022 Provider: Italo pitts MD Diagnosis: 1-2 po q 4-6h Last Documented On 3 5:41PM By Felice Dixon ; [facility] oxyCODONE HCl 5 MG Oral Tablet 08/11/2022 - 08/16/2022 Provider: Italo pitts MD Diagnosis: 1-2 po q 4-6h Last Documented On 3 5:41PM By Felice Dixon ; [facility] Warfarin Sodium 6 MG Oral Tablet 08/11/2022 - 08/21/2022 Provider: Italo pitts MD Diagnosis: once a day Last Documented On 3 5:56PM By Felice Dixon ; [facility] Lovenox 40 MG/0.4ML Injection Solution Prefilled Syringe 08/11/2022 - 08/15/2022 Provider: Italo pitts MD Diagnosis: once a day Last Documented On 3 5:56PM By Felice Dixon ; [facility] Ondansetron HCl 4 MG Oral Tablet 08/11/2022 - 08/16/2022 Provider: Italo Dixon MD Diagnosis: 0ypm1-7p Last Documented On 3 5:56PM By Felice Dixon ; [facility] Meloxicam 15 MG Oral Tablet 08/11/2022 - 08/25/2022 Provider: Italo pitts MD Diagnosis: once a day Last Documented On 3 5:56PM By Felice Dixon ; [facility] Colace 100 MG Oral Capsule 08/11/2022 - 11/09/2022 Provider: Italo pitts MD Diagnosis: 1-2 tabs daily Last Documented On 3 5:56PM By Felice Dixon ; [facility] Cefadroxil 500 MG Oral Capsule 08/11/2022 - 08/14/2022 Provider: Italo pitts MD Diagnosis: twice a day Last Documented On 3 5:41PM By Felice Dixon ; [facility] Acetaminophen 500 MG Oral Tablet 08/11/2022 - 09/10/2022 Provider: Italo Dixon MD Diagnosis: 2 three times a day Last Documented On 3 5:41PM By Felice Dixon ; [facility] traMADol HCl 50 MG Oral Tablet 08/04/2022 - 08/09/2022 Provider: Italo pitts MD Diagnosis: 1-2 po q 4-6h Last Documented On 3 5:18PM By Felice Dixon ; [facility] oxyCODONE HCl 5 MG Oral Tablet 08/04/2022 - 08/09/2022 Provider: Italo pitts MD Diagnosis: 1-2 po q 4-6h Last Documented On 3 5:18PM By Felice Dixon ; [facility] traMADol HCl 50 MG Oral Tablet 08/04/2022 - 08/09/2022 Provider: Italo pitts MD Diagnosis: 1-2 po q 4-6h Last Documented On 3 5:18PM By Felice Dixon ; [facility] Warfarin Sodium 5 MG Oral Tablet 07/05/2022 - 07/19/2022 Provider: Italo pitts MD Diagnosis: 1 every bedtime Last Documented On 3 4:39PM By Felice Dixon ; [facility] Colace 100 MG Oral Capsule 06/17/2022 - 09/15/2022 Provider: Italo pitts MD Diagnosis: 1-2 tabs daily Last Documented On 3 3:07PM By Felice Dixon ; [facility] Cefadroxil 500 MG Oral Capsule 06/17/2022 - 06/20/2022 Provider: Italo pitts MD Diagnosis: twice a day Last Documented On 3 3:07PM By Felice Dixon ; [facility] Acetaminophen 500 MG Oral Tablet 06/17/2022 - 07/17/2022 Provider: Italo Dixon MD Diagnosis: 2 three times a day Last Documented On 3 3:07PM By Felice Dixon ; [facility] Meloxicam 15 MG Oral Tablet 06/17/2022 - 07/17/2022 Provider: Italo pitts MD Diagnosis: once a day Last Documented On 3 3:07PM By Felice Dixon ; [facility] Ondansetron HCl 4 MG Oral Tablet 06/17/2022 - 06/22/2022 Provider: Italo Dixon MD Diagnosis: [id number] Last Documented On 3 3:07PM By Felice Dixon ; [facility] Lovenox 40 MG/0.4ML Injection Solution Prefilled Syringe 06/17/2022 - 06/21/2022 Provider: Italo pitts MD Diagnosis: once a day Last Documented On 3 3:08PM By Felice Dixon ; [facility] traMADol HCl 50 MG Oral Tablet 06/17/2022 - 06/22/2022 Provider: Italo pitts MD Diagnosis: 1-2 po q 4-6h Last Documented On 3 3:08PM By Felice Dixon ; [facility] oxyCODONE HCl 5 MG Oral Tablet 06/17/2022 - 06/22/2022 Provider: Italo pitts MD Diagnosis: 1-2 po q 4-6h Last Documented On 3 3:07PM By Felice Dixon ; [facility] Medications Administered Includes: Administered Medications from this encounter No Administered Medications Recorded Vital Signs Includes: Vital Signs from this encounter Vital Name 10/12/2023 09:46A Height (in) 62 Weight (lb) 125 Body Mass Index 22.9 Body Surface Area 1.6 Note: KL Last Documented: On 10/12/2023 9:46AM ; [facility] Results Includes: Results discussed during this encounter No Results Recorded For Specified Dates History of Present Illness Includes: History of Present Illness from this encounter EARNESTINE Alcala is a 68 year old female. - Allergy list reviewed - Problem list reviewed - Medication list reviewed - - Review of medications documented Social History Description Last Updated Not a current smoker. former 10/20/2022 Last Documented On 4 9:45AM ; [facility] Not using alcohol former 10/20/2022 Last Documented On 4 9:45AM ; [facility] Tobacco non-user 05/26/2022 Last Documented On 4 9:45AM ; [facility] Caffeine use 05/26/2022 Last Documented On 4 9:45AM ; [facility] Exercising regularly 05/26/2022 Last Documented On 4 9:45AM ; [facility] No recent change in diet 05/26/2022 Last Documented On 4 9:45AM ; [facility] Not using drugs 05/26/2022 Last Documented On 4 9:45AM ; [facility] Smoking Status Unknown Procedures and Surgical History Includes: Procedures from this encounter Procedures Code Diagnosis Performing Provider Service Location Service Date HIP BILATERAL [address] Paresthesia of skin, Presence of artificial hip joint, bilateral Chuck Cortez PA-C [facility] 10/12/2023 Last Documented On 4 2:03PM ; [facility] use of tobacco assessment performed 1000F Last Documented On 4 9:45AM ; [facility] patient screened for future fall risk: documentation of any fall with injury in past year 1100F Last Documented On 4 9:45AM ; [facility] EMG was performed 75619 Last Documented On 4 9:45AM ; [facility] an X-ray was performed 06/30/2022 BGO [id number] Last Documented On 4 9:45AM ; [facility] a CT scan was performed 84981 Last Documented On 4 9:45AM ; [facility] an MRI was performed [id number] Last Documented On 4 9:45AM ; [facility] Surgical History Last Updated History of total hip replacement 023 Last Documented On 4 9:45AM ; [facility] Past Surgical History: Right shoulder ca lcium deposit removal 10/20/2022 Last Documented On 4 9:45AM ; [facility] Medical History Includes: Medical History addressed during this encounter Description Last Updated History of arthritis 10/20/2022 Last Documented On 4 9:45AM ; [facility] History of Fractures 10/20/2022 Last Documented On 4 9:45AM ; [facility] History of History of Rheumatology 10/20 Last Documented On 4 9:45AM ; [facility] History of osteoporosis 10/20/2022 Last Documented On 4 9:45AM ; [facility] History of Previous Fractures 10/20/2022 Last Documented On 4 9:45AM ; [facility] History of Thyroid Disease 10/20/2022 Last Documented On 4 9:45AM ; [facility] Family History Includes: Family History addressed during this encounter Description Last Updated Family history of cancer 10/20/2022 Last Documented On 4 9:45AM ; [facility] Family history of heart disease 10/21/19 23 Last Documented On 4 9:45AM ; [facility] Family history of osteoporosis 3 Last Documented On 4 9:45AM ; [facility] Family history of rheumatoid arthritis 0 10/20/2022 Last Documented On 4 9:45AM ; [facility] Family history of systemic hypertension 10/20/2022 Last Documented On 4 9:45AM ; [facility] Family history of thromboembolic disease 10/20/2022 Last Documented On 4 9:45AM ; [facility] Stroke / Seizures 10/20/2022 Last Documented On 4 9:45AM ; [facility] No significant family history 06/30/2022 Last Documented On 4 9:45AM ; [facility] Review of Systems Includes: Review of [...] Active Last Documented On 4 9:45AM ; [facility] Levaquin Allergy Skin Rashes / Er uption of skin, Hives / Urticaria 06/09/2022 Active Last Documented On 4 9:45AM ; [facility] levamir Allergy Skin Rashes / Eruption of skin Active Last Documented On 4 9:45AM ; [facility] Encounters Encounter Provider Location Date Check-In Time Check-Out Time Diagnosis Follow Up Chuck Cortez PA-C [facility] 4 9:36AM 10:43AM Insurance Includes: Active Insurance Policies Plan Name Member ID Group # Subscriber Relationship Effect drew Dates 1 - Medicare Part B [facility] [id number] Renee Tobar Fredrick Ambrocio 2 - [facility] [employer] [id number] eRnee Alcala Cristóbal Clinical Notes Includes: Clinical Notes from this encounter * Progress note Date Encounter Last Documented by 10/12/2023 Follow Up Last documented on 10/12/2023; 10:44 AM, Chuck Cortez PA-C; [facility] Active Problems & Conditions - Joint [...] Imaging: X-Ray: An X-ray was performed 06/30/2022 [facility]. CT Scan: CT scan. MRI Scan: [...] Care Team - JACKLYN JAIN MD - [employer]
--- OUTSIDE RECORDS SUMMARY | 2024-07-10 10:47 | XMS_ITS | Clinical Summary ---
Author Organization [facility] Address [address] [place] [address] Phone Care Team Providers Care Eastern Philosophy Professor Name Role Phone Gilmer ASHLEY, Italo Lau Unavailable [phone] JACKLYN JAIN MD Unavailable [phone] Reason for Visit and Chief Complaint The Chief Complaint is: Left shoulder pain Problems Includes: Problems addressed during this encounter and other active Problems Current Visit Onset Date Resolved Date Provider Conditio n Status Joint Pain, Localized in the Shoulder 10/20/2022 Shadia Potter PA-C Active Last Documented On 3 9:55AM ; [facility] Past Visits Onset Date Resolved Date Provider Condition Status Joint Pain in Both Hips 05/26/2022 Italo Dixon MD Active Last Documented On 3 10:52AM ; [facility] Plan of Treatment Fall Risk Assessment: [...] with the patient. - Last Documented On 10/20/2022 10:20AM ; [facility] Patient was explained treatment options regarding glenohumeral joint arthritis at this stage. These would be limited conservatively to injections and medication. Physical therapy is often not productive and can exacerbate pain in these stages. Surgical options would include shoulder arthroplasty either reverse or anatomic total replacement. They understand the risks and benefits of these options were explained to the patient. we are going to try an injection for now. Will consider arthroplasty as a option if she fails this. The risk and benefits of the injection were outlined to the patient. They understand these and wished to proceed. The anterior portion of the shoulder over the glenohumeral joint was prepped with alcohol and Betadine. Using a 27-gauge needle and 5 cc syringe I pierced the skin breaching the anterior joint capsule. I then aspirated to confirm no presence of a vascular bed I then injected a solution of 40 mg Kenalog / 2 cc of lidocaine/2 cc of Marcaine into the joint. The patient tolerated this procedure well. - Last Documented On 10/20/2022 10:20AM ; [facility], [facility] Assessments Includes: Assessments from this encounter Findings left shoulder arthritis - Last Documented On 10/20/2022 10:20AM ; [facility], [facility] Medical Equipment - Implanted Devices Includes: Current Devices No Medical Equipment Recorded Medications Includes: Medications discussed during this encounter and other current Medications Current Medications (continue as prescribed) Meloxicam 15 MG Oral Tablet 10/19/2022 Provider: Carmen Carlin MICROMATIC HONE OPERATOR Diagnosis: Last Documented On 3 9:55AM By Arleen Adan ; [facility] Cyclobenzaprine HCl 10 MG Oral Tablet 10/14/2022 Pro vider: JACKLYN JAIN MD Diagnosis: Last Documented On 3 9:55AM By Arleen Adan ; [facility] Zolpidem Tartrate 10 MG Oral Tablet 10/04/2022 Provi ana: JACKLYN JAIN MD Diagnosis: Last Documented On 3 9:55AM By Arleen Adan ; [facility] Hydroxychloroquine Sulfate 200 MG Oral Tablet 09/14/19 Provider: Carmen Carlin MICROMATIC HONE OPERATOR Diagnosis: Last Documented On 3 9:55AM By Arleen Adan ; [facility] traMADol HCl 50 MG Oral Tablet 09/09/2022 Provider: ITALO DIXON MD Diagnosis: Last Documented On 3 9:55AM By Arleen Adan ; [facility] oxyCODONE HCl 5 MG Oral Tablet 09/09/2022 Provider: ITALO DIXON MD Diagnosis: Last Documented On 3 9:55AM By Arleen Adan ; [facility] Warfarin Sodium 1 MG Oral Tablet 09/06/2022 Provider : ITALO DIXON MD Diagnosis: Last Documented On 3 9:55AM By Arleen Adan ; [facility] Warfarin Sodium 5 MG Oral Tablet 07/21/2022 Provider : Diagnosis: Last Documented On 3 10:10AM By Jocelyn Murray ; [facility] Levothyroxine Sodium 25 MCG Oral Tablet 07/21/2022 P rovider: Diagnosis: Last Documented On 3 10:09AM By Jocelyn Murray ; [facility] Gabapentin 300 MG Oral Capsule 07/21/2022 Provider: Diagnosis: Last Documented On 3 10:08AM By Jocelyn Murray ; [facility] Ascorbic Acid 500 MG Oral Capsule 07/21/2022 Provide r: Diagnosis: Last Documented On 3 10:07AM By Jocelyn Murray ; [facility] Warfarin Sodium 1 MG Oral Tablet 2022 Provider : ITALO DIXON MD Diagnosis: Last Documented On 3 9:29AM By Nirali Claire ; [facility] Hydroxychloroquine Sulfate 200 MG Oral Tablet 06/07/19 Provider: Diagnosis: Last Documented On 3 8:45AM By Jocelyn Murray ; [facility] Meloxicam 15 MG Oral Tablet 06/06/2022 Provider: Diagnosis: Last Documented On 3 8:46AM By Jocelyn Murray ; [facility], [facility] Atorvastatin Calcium 20 MG Oral Tablet 06/06/2022 Pr ovider: Diagnosis: Last Documented On 3 8:44AM By Jocelyn Murray ; [facility] Zolpidem Tartrate 10 MG Oral Tablet 05/25/2022 Provi ana: JACKLYN JAIN MD Diagnosis: Last Documented On 3 10:41AM By Sanket Saunders ; [facility] Cyclobenzaprine HCl 10 MG Oral Tablet 05/18/2022 Pro vider: JACKLYN JAIN MD Diagnosis: Last Documented On 3 10:41AM By Sanket Saunders ; [facility] HYDROcodone-Acetaminophen 7. 5-325 MG Oral Tablet 05/18/2022 Provider: JACKLYN JAIN MD Diagnosis: Last Documented On 3 10:41AM By Sanket Saunders ; [facility] tiZANidine HCl 4 MG Oral Tablet 05/05/2022 Provider: CORINNE CORCORAN MD Diagnosis: Last Documented On 3 10:41AM By Sanket Saunders ; [facility] Past Medications on file Medrol 4 MG Oral Tablet Therapy Pack 02/01/2023 - 02/08/2023 Provider: Italo Dixon MD Diagnosis: take as directed per instructions on box Last Documented On 3 11:15AM By Felice Dixon ; [facility] oxyCODONE HCl 5 MG Oral Tablet 09/09/2022 - 09/14/2022 Provider: Italo pitts MD Diagnosis: 1-2 po q 4-6h Last Documented On 3 9:06AM By Felice Dixon ; [facility] traMADol HCl 50 MG Oral Tablet 09/09/2022 - 09/14/2022 Provider: Italo pitts MD Diagnosis: 1-2 po q 4-6h Last Documented On 3 9:06AM By Felice Dixon ; [facility] Warfarin Sodium 1 MG Oral Tablet 09/06/2022 - 09/16/2022 Provider: Italo pitts MD Diagnosis: take as directed take one ta blet daily as directed by your physician Last Documented On 3 2:12PM By Felice Dixon ; [facility] traMADol HCl 50 MG Oral Tablet 09/05/2022 - 09/10/2022 Provider: Italo pitts MD Diagnosis: 1-2 po q 4-6h Last Documented On 3 12:12PM By Felice Dixon ; [facility] Warfarin Sodium 4 MG Oral Tablet 08/25/2022 - 09/08/2022 Provider: Italo pitts MD Diagnosis: 1 every bedtime Last Documented On 3 4:44PM By Felice Dixon ; [facility] traMADol HCl 50 MG Oral Tablet 08/11/2022 - 08/16/2022 Provider: Italo pitts MD Diagnosis: 1-2 po q 4-6h Last Documented On 3 5:41PM By Felice Dixon ; [facility] oxyCODONE HCl 5 MG Oral Tablet 08/11/2022 - 08/16/2022 Provider: Italo pitts MD Diagnosis: 1-2 po q 4-6h Last Documented On 3 5:41PM By Felice Dixon ; [facility] Warfarin Sodium 6 MG Oral Tablet 08/11/2022 - 08/21/2022 Provider: Italo pitts MD Diagnosis: once a day Last Documented On 3 5:56PM By Felice Dixon ; [facility] Lovenox 40 MG/0.4ML Injection Solution Prefilled Syringe 08/11/2022 - 08/15/2022 Provider: Italo pitts MD Diagnosis: once a day Last Documented On 3 5:56PM By Felice Dixon ; [facility] Ondansetron HCl 4 MG Oral Tablet 08/11/2022 - 08/16/2022 Provider: Italo Dixon MD Diagnosis: [id number] Last Documented On 3 5:56PM By Felice Dixon ; [facility] Meloxicam 15 MG Oral Tablet 08/11/2022 - 08/25/2022 Provider: Italo pitts MD Diagnosis: once a day Last Documented On 3 5:56PM By Felice Dixon ; [facility] Colace 100 MG Oral Capsule 08/11/2022 - 11/09/2022 Provider: Italo pitts MD Diagnosis: 1-2 tabs daily Last Documented On 3 5:56PM By Felice Dixon ; [facility] Cefadroxil 500 MG Oral Capsule 08/11/2022 - 08/14/2022 Provider: Italo pitts MD Diagnosis: twice a day Last Documented On 3 5:41PM By Felice Dixon ; [facility] Acetaminophen 500 MG Oral Tablet [...] On 3 5:18PM By Felice Dixon ; [facility] traMADol HCl 50 MG Oral Tablet 08/04/2022 - 08/09/2022 Provider: Italo pitts MD Diagnosis: 1-2 po q 4-6h Last Documented On 3 5:18PM By Felice Dixon ; [facility] Warfarin Sodium 5 MG Oral Tablet 07/05/2022 - 07/19/2022 Provider: Italo pitts MD Diagnosis: 1 every bedtime Last Documented On 3 4:39PM By Felice Dixon ; [facility] Colace 100 MG Oral Capsule 06/17/2022 - 09/15/2022 Provider: Italo pitts MD Diagnosis: 1-2 tabs daily Last Documented On 3 3:07PM By Felice Dixon ; [facility] Cefadroxil 500 MG Oral Capsule 06/17/2022 - 06/20/2022 Provider: Italo pitts MD Diagnosis: twice a day Last Documented On 3 3:07PM By Felice Dixon ; [facility] Acetaminophen 500 MG Oral Tablet 06/17/2022 - 07/17/2022 Provider: Italo Dixon MD Diagnosis: 2 three times a day Last Documented On 3 3:07PM By Felice Dixon ; [facility] Meloxicam 15 MG Oral Tablet 06/17/2022 - 07/17/2022 Provider: Italo pitts MD Diagnosis: once a day Last Documented On 3 3:07PM By Felice Dixon ; [facility] Ondansetron HCl 4 MG Oral Tablet 06/17/2022 - 06/22/2022 Provider: Italo Dixon MD Diagnosis: [id number] Last Documented On 3 3:07PM By Felice Dixon ; [facility] Lovenox 40 MG/0.4ML Injection Solution Prefilled Syringe 06/17/2022 - 06/21/2022 Provider: Italo pitts MD Diagnosis: once a day Last Documented On 3 3:08PM By Felice Dixon ; [facility] traMADol HCl 50 MG Oral Tablet 06/17/2022 - 06/22/2022 Provider: Italo pitts MD Diagnosis: 1-2 po q 4-6h Last Documented On 3 3:08PM By Felice Dixon ; [facility] oxyCODONE HCl 5 MG Oral Tablet 06/17/2022 - 06/22/2022 Provider: Italo pitts MD Diagnosis: 1-2 po q 4-6h Last Documented On 3 3:07PM By Felice Dixon ; [facility] Medications Administered Includes: Administered Medications from this encounter No Administered Medications Recorded Vital Signs Includes: Vital Signs from this encounter Vital Name 10/20/2022 09:56A Height (in) 62 Weight (lb) 123 Body Mass Index 22.5 Body Surface Area 1.6 Note: hdv Last Documented: On 10/20/2022 9:56AM ; [facility] Results Includes: Results discussed during this encounter No Results Recorded For Specified Dates History of Present Illness Includes: History of Present Illness from this encounter EARNESTINE Alcala is a 67 year old female. - Symptoms Popping. - Allergy list reviewed - Problem list reviewed - Medication list reviewed - Patient pain level from 1-10: 5 Pain is worse with forward and upward movement of the arm. Nothing makes the pain better - Yes, previous treatment. - History of Injections Social History Description Last Updated Not a current smoker. former 10/20/2022 Last Documented On 3 10:20AM ; [facility] Not using alcohol former 10/20/2022 Last Documented On 3 10:20AM ; [facility] Tobacco non-user 05/26/2022 Last Documented On 3 9:56AM ; [facility] Caffeine use 05/26/2022 Last Documented On 3 9:56AM ; [facility] Exercising regularly 05/26/2022 Last Documented On 3 9:56AM ; [facility] No recent change in diet 05/26/2022 Last Documented On 3 9:56AM ; [facility] Not using drugs 05/26/2022 Last Documented On 3 9:56AM ; [facility] Smoking Status Unknown Procedures and Surgical History Includes: Procedures from this encounter Procedures Code Diagnosis Performing Provider Service L ocation Service Date use of tobacco assessment performed 1000F Last Documented On 3 9:56AM ; [facility] patient screened for future fall risk: documentation of any fall with injury in past year 1100F Last Documented On 3 9:56AM ; [facility] Surgical History Last Updated History of total hip replacement 023 Last Documented On 3 10:20AM ; [facility] Past Surgical History: Right shoulder ca lcium deposit removal 10/20/2022 Last Documented On 3 10:20AM ; [facility] Medical History Includes: Medical History addressed during this encounter Description Last Updated History of arthritis 10/20/2022 Last Documented On 3 10:20AM ; [facility] History of Fractures 10/20/2022 Last Documented On 3 10:20AM ; [facility] History of History of Rheumatology 10/20 Last Documented On 3 10:20AM ; [facility] History of osteoporosis 10/20/2022 Last Documented On 3 10:20AM ; [facility] History of Previous Fractures 10/20/2022 Last Documented On 3 10:20AM ; [facility] History of Thyroid Disease 10/20/2022 Last Documented On 3 10:20AM ; [facility] Family History Includes: Family History addressed during this encounter Description Last Updated Family history of cancer 10/20/2022 Last Documented On 3 10:20AM ; [facility] Family history of heart disease 10/21/19 Last Documented On 3 10:20AM ; [facility] Family history of osteoporosis 3 Last Documented On 3 10:20AM ; [facility] Family history of rheumatoid arthritis 0 10/20/2022 Last Documented On 3 10:20AM ; [facility] Family history of systemic hypertension 10/20/2022 Last Documented On 3 10:20AM ; [facility] Family history of thromboembolic disease 10/20/2022 Last Documented On 3 10:20AM ; [facility] Stroke / Seizures 10/20/2022 Last Documented On 3 10:20AM ; [facility] Review of Systems Includes: Review of Systems from this encounter Systemic: Not feeling tired, no recent weight loss, and no recent weight gain. Head: No headache and no sinus pain. Eyes: No vision problems. Cataracts and Glasses/Contacts. No Glaucoma. Otolaryngeal: No hearing loss. Tinnitus. Cardiovascular: No chest pain or discomfort, no palpitations, no Hypertension, and no High Cholesterol. Pulmonary: No daytime asthma symptoms and no chronic cough. No wheezing. Gastrointestinal: No heartburn and no abdominal pain. No Indigestion, no Acid Reflux, no Peptic Ulcer, no GI Stomach Bleed, and no Ulcers. Endocrine: No hot flashes. Muscle weakness. No Diabetes. Hypothyroid. No Hyperthyroid. Hematologic: No easy bleeding. A tendency for easy bruising. No Anemia. Musculoskeletal: Arthritis and lower back pain. No soft tissue swelling. Pain localized to one or more joints. Neurological: No dizziness and no convulsions. Numbness. Psychological: No anxiety, no emotional lability, and no depression. Insomnia. Not crying for no reason. Skin: No [...] Active Last Documented On 4 9:45AM ; [facility] Levaquin Allergy Skin Rashes / Er uption of skin, Hives / Urticaria 06/09/2022 Active Last Documented On 4 9:45AM ; [facility] levamir Allergy Skin Rashes / Eruption of skin Active Last Documented On 4 9:45AM ; [facility] Encounters Encounter Provider Location Date Check-In Time Check-Out Time Diagnosis Physician Specified Shadia Potter PA-C [facility] 10/21/19 9:32AM 10:04AM Insurance Includes: Active Insurance Policies Plan Name Member ID Group # Subscriber Relationship Effect drew Dates 1 - Medicare Part B [facility] [id number] Renee Alcala Cristóbal 2 - [facility] [employer] [id number] Renee Ambrocio Clinical Notes Includes: Clinical Notes from this encounter * Progress note Date Encounter Last Documented by 10/20/2022 Physician Specified Last gelyn domenico on 10/20/2022; 10:20 AM, Shadia Potter PA-C; [facility], [facility] Active Problems & Conditions - Joint Pain in Both Hips - Joint Pain, Localized in the Shoulder Chief Complaint The Chief Complaint is: Left shoulder pain. Referred Here Referred by PCP. History of Present Illness Renee Alcala is a 67 year old female. - Symptoms Popping. - Allergy list reviewed - Problem list reviewed - Medication list reviewed - Patient pain level from 1-10: 5 Pain is worse with forward and upward movement of the arm. Nothing makes the pain better - Yes, previous treatment. - History of Injections Current Medication - Ascorbic Acid 500 MG [...] Thyroid Disease History of Rheumatology. Osteoporosis. Arthritis Procedural: - Previous Fractures Surgical: - Past Surgical History: Right shoulder calcium deposit removal - Total hip replacement Social History Not [...] and no sinus pain. Eyes: No vision problems. Cataracts and Glasses/Contacts. No Glaucoma. Otolaryngeal: No hearing loss. Tinnitus. Cardiovascular: No chest pain or discomfort, no palpitations, no Hypertension, and no High Cholesterol. Pulmonary: No daytime asthma symptoms and no chronic cough. No wheezing. Gastrointestinal: No heartburn and no abdominal pain. No Indigestion, no Acid Reflux, no Peptic Ulcer, no GI Stomach Bleed, and no Ulcers. Endocrine: No hot flashes. Muscle weakness. No Diabetes. Hypothyroid. No Hyperthyroid. Hematologic: No easy bleeding. A tendency for easy bruising. No Anemia. Musculoskeletal: Arthritis and lower back pain. No soft tissue swelling. Pain localized to one or more joints. Neurological: No dizziness and no convulsions. Numbness. Psychological: No anxiety, no emotional lability, and no depression. Insomnia. Not crying for no reason. Skin: No dry skin. No Ulcers, no Scars, and no rash. Allergic and Immunologic: No complaint of seasonal allergic reaction. Physical Findings - Vitals taken 10/20/2022 09:56 am hdv Height 62 in Weight 123 lbs Body Mass Index 22.5 kg/m2 Body Surface Area 1.6 m2 General Exam: The patient is awake and alert. No acute distress. Normal mood and affect for age. Well groomed and nourished Neuro: Sensation was intact to light touch over the extremity. Vascular: +2 radial pulses. No edema. Derm: No signs of active infection. No acute skin changes. Musculoskeletal: Normal gait and station. No muscle atrophy. No joint effusion. No muscle or bony deformity physical anterior joint line tenderness for flexion is to 150. She has mild weakness secondary to pain the joint is stable Tests x-rays three-view of the left shoulder show [id number] arthritis in the glenohumeral joint Assessment left shoulder arthritis Plan Fall Risk Assessment: This patient has [...] has been discussed with the patient. Patient was explained treatment options regarding glenohumeral joint arthritis at this stage. These would be limited conservatively to injections and medication. Physical therapy is often not productive and can exacerbate pain in these stages. Surgical options would include shoulder arthroplasty either reverse or anatomic total replacement. They understand the risks and benefits of these options were explained to the patient. we are going to try an injection for now. Will consider arthroplasty as a option if she fails this. The risk and benefits of the injection were outlined to the patient. They understand these and wished to proceed. The anterior portion of the shoulder over the glenohumeral joint was prepped with alcohol and Betadine. Using a 27-gauge needle and 5 cc syringe I pierced the skin breaching the anterior joint capsule. I then aspirated to confirm no presence of a vascular bed I then injected a solution of 40 mg Kenalog / 2 cc of lidocaine/2 cc of Marcaine into the joint. The patient tolerated this procedure well. Notes This dictation was done with voice recognition software and may contain errors and omissions. Practice Management Use of tobacco assessment performed and patient screened for future fall risk documentation of any fall with injury in past year. Care Team - JACKLYN JAIN MD - HEAD GOLF COACH
--- OUTSIDE RECORDS SUMMARY | 2024-07-10 10:47 | XMS_ITS ---
Author Organization Unknown Allergies, Adverse Reactions and Alerts Date IsAllergic OnsetDate Allergen Reaction Type Severity Percy rgyCode Legacyallergictoid ReactionCode ReactionCodeSystemID 06/19 00:00 :00 1 04/01/2019 00:00:00 Levofloxa lukasz does not recall Aller gy High [id number] 06/19 00:00 :00 1 04/01/2019 00:00:00 Levofloxa lukasz does not recall Aller gy High [id number] 05/20 00:00 :00 1 04/01/2019 00:00:00 Levofloxa lukasz does not recall Aller gy High [id number] 05/20 00:00 :00 1 04/01/2019 00:00:00 Levofloxa lukasz does not recall Aller gy High [id number] 05/03 00:00 :00 1 04/01/2019 00:00:00 Levofloxa lukasz does not recall Aller gy High [id number] 04/15 00:00 :00 1 04/01/2019 00:00:00 Levofloxa lukasz does not recall Aller gy High [id number] 04/05 00:00 :00 1 04/01/2019 00:00:00 Levofloxa lukasz does not recall Aller gy High [id number]
--- NOTE | 2024-07-10 10:48 | MM_ITS ---
PROCEDURE INFORMATION: Exam: MG Bilateral Screening 3D Mammography Exam date and time: 07/10/2024 11:00 AM Age: 69 years old Clinical indication: Screening mammogram TECHNIQUE: Imaging protocol: Bilateral Screening tomosynthesis and 2D mammography including computer-aided detection (CAD) when performed. COMPARISON: 1. MG MM DIG SCREENING MAMM BI W/CAD 03/28/2023 10:40 AM 2. MG MM DIG SCREENING MAMM BI W/CAD 10/28/2021 10:43 AM 3. MG MM DIG SCREENING MAMM BI W/CAD 03/04/2020 10:17 AM 4. MG MM DIG SCREENING MAMM BI W/CAD 11/07/2018 10:28 AM FINDINGS: MAMMOGRAPHY: Breast composition: There are scattered areas of fibroglandular density. Mass: None. Architectural distortion: No new or suspicious architectural distortion. Calcifications: No new or suspicious calcifications are present Asymmetric density: No new or suspicious asymmetric density is present Skin thickening: None. Axillary adenopathy: None. IMPRESSION: No mammographic evidence of malignancy. Recommend annual screening mammography unless otherwise clinically indicated. ASSESSMENT: BI-RADS category 1: Negative.
--- OUTSIDE RECORDS SUMMARY | 2024-07-10 10:48 | XMS_ITS ---
Care Plan - [facility], [facility] Created on: July 10, 2024 Renee Alcala : 1955 Sex: Female Author Organization [facility] Address [address] [place] [address] Phone Care Team Providers Care [facility] Manager Name Role Phone Gilmer ASHLEY, Drew Lau Unavailable [phone] SUSY ASHLEY, JACKLYN Bashir Unavailable [phone]
--- OUTSIDE RECORDS SUMMARY | 2024-07-10 10:48 | XMS_ITS | Clinical Summary ---
Author Organization [facility] Address [address] [place] [address] Phone Care Team Providers Care Hand Clerical Verifier Name Role Phone Gilmer ASHLEY, Italo Lau Unavailable [phone] SUSY ASHLEY, JACKLYN Bashir Unavailable [phone] Reason for Visit and Chief Complaint The Chief Complaint is: BILATER HIP PAIN/low back pain Problems Includes: Problems addressed during this encounter and other active Problems All Visits Onset Date Resolved Date Provider Condition S tatus Joint Pain, Localized in the Shoulder 10/20/2022 Shadia Potter PA-C Active Last Documented On 3 9:55AM ; [facility], [facility] Joint Pain in Both Hips 05/26/2022 Italo Dixon MD Active Last Documented On 3 10:52AM ; [facility] Plan of Treatment Fall Risk Assessment: This [...] with the patient. - Last Documented On 02/23/2023 9:40AM ; [facility] I have offered her an epidural injection to see if this can treat her symptoms however she is not sure she wants to do this. She had a shoulder injection that caused her to have some flushing in the face. And therefore she will think about pursuing further treatment options. I do not see any indications for any surgical treatment. If she wants to pursue further treatment she will contact us for further evaluation and/or treatment options. - Last Documented On 02/23/2023 9:40AM ; [facility], [facility] Assessments Includes: Assessments from this encounter Findings Patient appears to present with spinal stenosis symptoms likely coming from the mid lumbar region likely at the L3-4 level. - Last Documented On 02/23/2023 9:40AM ; [facility] Medical Equipment - Implanted Devices Includes: Current Devices No Medical Equipment Recorded Medications Includes: Medications discussed during this encounter and other current Medications Current Medications (continue as prescribed) Meloxicam 15 MG Oral Tablet 10/19/2022 Provider: Carmen Carlin NP Diagnosis: Last Documented On 3 9:55AM By Arleen Adan ; [facility] Cyclobenzaprine HCl 10 MG Oral Tablet 10/14/2022 Pro vider: JACKLYN JAIN MD Diagnosis: Last Documented On 3 9:55AM By Arleen Adan ; [facility] Zolpidem Tartrate 10 MG Oral Tablet 10/04/2022 Provi ana: JACKLYN JAIN MD Diagnosis: Last Documented On 3 9:55AM By Arleen Adan ; [facility] Hydroxychloroquine Sulfate 200 MG Oral Tablet 09/14/19 Provider: Carmen Carlin NP Diagnosis: Last Documented On 3 9:55AM By Arleen Adan ; [facility] traMADol HCl 50 MG Oral Tablet 09/09/2022 Provider: ITALO DIXON MD Diagnosis: Last Documented On 3 9:55AM By Arleen Adan ; [facility] oxyCODONE HCl 5 MG Oral Tablet 09/09/2022 Provider: ITALO DIXON MD Diagnosis: Last Documented On 3 9:55AM By Arleen Adan ; [facility] Warfarin Sodium 1 MG Oral Tablet 09/06/2022 Provider : ITALO DIXNO MD Diagnosis: Last Documented On 3 9:55AM By Arleen Adan ; [facility] Warfarin Sodium 5 MG Oral Tablet 07/21/2022 Provider : Diagnosis: Last Documented On 3 10:10AM By Jocelyn Murray ; [facility] Levothyroxine Sodium 25 MCG Oral Tablet 07/21/2022 P meenakshider: Diagnosis: Last Documented On 3 10:09AM By Jocelyn Murray ; [facility], [facility] Gabapentin 300 MG Oral Capsule 07/21/2022 Provider: Diagnosis: Last Documented On 3 10:08AM By Jocelyn Murray ; [facility] Ascorbic Acid 500 MG Oral Capsule 07/21/2022 Provide r: Diagnosis: Last Documented On 3 10:07AM By Jocelyn Murray ; [facility], [facility] Warfarin Sodium 1 MG Oral Tablet 2022 Provider : ITALO DIXON MD Diagnosis: Last Documented On 3 9:29AM By Nirali Claire ; [facility] Hydroxychloroquine Sulfate 200 MG Oral Tablet 06/07/19 Provider: Diagnosis: Last Documented On 3 8:45AM By Jocelyn Murray ; [facility] Meloxicam 15 MG Oral Tablet 06/06/2022 Provider: Diagnosis: Last Documented On 3 8:46AM By Jocelyn Murray ; [facility] Atorvastatin Calcium 20 MG Oral Tablet 06/06/2022 Pr ovider: Diagnosis: Last Documented On 3 8:44AM By Jocelyn Murray ; [facility] Zolpidem Tartrate 10 MG Oral Tablet 05/25/2022 Provi ana: JACKLYN JAIN MD Diagnosis: Last Documented On 3 10:41AM By Sanket Saunders ; [facility] Cyclobenzaprine HCl 10 MG Oral Tablet 05/18/2022 Pro vider: JACKLYN JAIN MD Diagnosis: Last Documented On 3 10:41AM By Sanket Saunders ; [facility] HYDROcodone-Acetaminophen 7. 5-325 MG Oral Tablet 05/18/2022 Provider: JACKLYN JAIN MD Diagnosis: Last Documented On 3 10:41AM By Sanket Saunders ; [facility] tiZANidine HCl 4 MG Oral Tablet 05/05/2022 Provider: CORINNE CORCORAN MD Diagnosis: Last Documented On 3 10:41AM By Sanket Saunders ; [facility] Past Medications on file Medrol 4 MG Oral Tablet Therapy Pack 02/01/2023 - 02/08/2023 Provider: Italo Dixon MD Diagnosis: take as directed per instructions on box Last Documented On 3 11:15AM By Felice Dixon ; [facility] oxyCODONE HCl 5 MG Oral Tablet 09/09/2022 - 09/14/2022 Provider: Italo pitts MD Diagnosis: 1-2 po q 4-6h Last Documented On 3 9:06AM By Felice Dixon ; [facility] traMADol HCl 50 MG Oral Tablet 09/09/2022 - 09/14/2022 Provider: Italo pitts MD Diagnosis: 1-2 po q 4-6h Last Documented On 3 9:06AM By Felice Dixon ; [facility] Warfarin Sodium 1 MG Oral Tablet 09/06/2022 - 09/16/2022 Provider: Italo pitts MD Diagnosis: take as directed take one ta blet daily as directed by your physician Last Documented On 3 2:12PM By Felice Dixon ; [facility] traMADol HCl 50 MG Oral Tablet 09/05/2022 - 09/10/2022 Provider: Italo pitts MD Diagnosis: 1-2 po q 4-6h Last Documented On 3 12:12PM By Felice Dixon ; [facility] Warfarin Sodium 4 MG Oral Tablet 08/25/2022 - 09/08/2022 Provider: Italo pitts MD Diagnosis: 1 every bedtime Last Documented On 3 4:44PM By Felice Dixon ; [facility] traMADol HCl 50 MG Oral Tablet 08/11/2022 - 08/16/2022 Provider: Italo pitts MD Diagnosis: 1-2 po q 4-6h Last Documented On 3 5:41PM By Felice Dixon ; [facility] oxyCODONE HCl 5 MG Oral Tablet 08/11/2022 - 08/16/2022 Provider: Italo pitts MD Diagnosis: 1-2 po q 4-6h Last Documented On 3 5:41PM By Felice Dixon ; [facility] Warfarin Sodium 6 MG Oral Tablet 08/11/2022 - 08/21/2022 Provider: Italo pitts MD Diagnosis: once a day Last Documented On 3 5:56PM By Felice Dixon ; [facility] Lovenox 40 MG/0.4ML Injection Solution Prefilled Syringe 08/11/2022 - 08/15/2022 Provider: Italo pitts MD Diagnosis: once a day Last Documented On 3 5:56PM By Felice Dixon ; [facility] Ondansetron HCl 4 MG Oral Tablet 08/11/2022 - 08/16/2022 Provider: Italo Dixon MD Diagnosis: 0egk3-2h Last Documented On 3 5:56PM By Felice Dixon ; [facility] Meloxicam 15 MG Oral Tablet 08/11/2022 - 08/25/2022 Provider: Italo pitts MD Diagnosis: once a day Last Documented On 3 5:56PM By Felice Dixon ; [facility] Colace 100 MG Oral Capsule 08/11/2022 - 11/09/2022 Provider: Italo pitts MD Diagnosis: 1-2 tabs daily Last Documented On 3 5:56PM By Felice Dixon ; [facility] Cefadroxil 500 MG Oral Capsule 08/11/2022 - 08/14/2022 Provider: Italo pitts MD Diagnosis: twice a day Last Documented On 3 5:41PM By Felice Dixon ; [facility] Acetaminophen 500 MG Oral Tablet 08/11/2022 - 09/10/2022 Provider: Italo Dixon MD Diagnosis: 2 three times a day Last Documented On 3 5:41PM By Felice Dixon ; [facility] traMADol HCl 50 [...] On 3 3:07PM By Felice Dixon ; [facility] Cefadroxil 500 MG Oral Capsule 06/17/2022 - 06/20/2022 Provider: Italo pitts MD Diagnosis: twice a day Last Documented On 3 3:07PM By Felice Dixon ; [facility] Acetaminophen 500 MG Oral Tablet 06/17/2022 - 07/17/2022 Provider: Italo Dixon MD Diagnosis: 2 three times a day Last Documented On 3 3:07PM By Felice Dixon ; [facility] Meloxicam 15 MG Oral Tablet 06/17/2022 - 07/17/2022 Provider: Italo pitts MD Diagnosis: once a day Last Documented On 3 3:07PM By Felice Dixon ; [facility] Ondansetron HCl 4 MG Oral Tablet 06/17/2022 - 06/22/2022 Provider: Italo Dixon MD Diagnosis: 3chy1-1h Last Documented On 3 3:07PM By Felice Dixon ; [facility] Lovenox 40 MG/0.4ML Injection Solution Prefilled Syringe 06/17/2022 - 06/21/2022 Provider: Italo pitts MD Diagnosis: once a day Last Documented On 3 3:08PM By Felice Dixon ; [facility] traMADol HCl 50 MG Oral Tablet 06/17/2022 - 06/22/2022 Provider: Italo pitts MD Diagnosis: 1-2 po q 4-6h Last Documented On 3 3:08PM By Felice Dixon ; [facility] oxyCODONE HCl 5 MG Oral Tablet 06/17/2022 - 06/22/2022 Provider: Italo pitts MD Diagnosis: 1-2 po q 4-6h Last Documented On 3 3:07PM By Felice Dixon ; [facility] Medications Administered Includes: Administered Medications from this encounter No Administered Medications Recorded Vital Signs Includes: Vital Signs from this encounter Vital Name 02/22/2023 09:58A Height (in) 62 Weight (lb) 125 Body Mass Index 22.9 Body Surface Area 1.6 Note: pw Last Documented: On 02/22/2023 9:58AM ; [facility] Results Includes: Results discussed during this encounter No Results Recorded For Specified Dates History of Present Illness Includes: History of Present Illness from this encounter EARNESTINE Alcala is a 67 year old female. - Allergy list reviewed - Problem list reviewed - Medication list reviewed - Patient pain level from 1-10: 4 Patient presents today upon in-house referral regarding lower back pain with bilateral leg numbness and discomfort. The right seems to be worse than the left. This seems to fall along the L4 levels predominantly especially on the right side. She does not complain of any numbness tingling that extend down the legs past the knee. Patient has had both hip joints replaced due to advanced arthritis. But she still dealing with a lot of leg symptoms. Patient has had problems now for few years. She is even had an MRI scan done a little over a year ago that identified disc degeneration with some stenosis that multiple levels but mostly at the L3-4 level. Patient has come to see us for further assessment and treatment regarding her hip and leg symptoms. Social History Description Last Updated Not a current smoker. former 10/20/2022 Last Documented On 3 9:42AM ; [facility] Not using alcohol former 10/20/2022 Last Documented On 3 9:42AM ; [facility] Tobacco non-user 05/26/2022 Last Documented On 3 9:42AM ; [facility] Caffeine use 05/26/2022 Last Documented On 3 9:42AM ; [facility] Exercising regularly 05/26/2022 Last Documented On 3 9:42AM ; [facility] No recent change in diet 05/26/2022 Last Documented On 3 9:42AM ; [facility] Not using drugs 05/26/2022 Last Documented On 3 9:42AM ; [facility] Smoking Status Unknown Procedures and Surgical History Includes: Procedures from this encounter Procedures Code Diagnosis Performing Provider Service L ocation Service Date use of tobacco assessment performed 1000F Last Documented On 3 9:42AM ; [facility] patient screened for future fall risk: documentation of any fall with injury in past year 1100F Last Documented On 3 9:42AM ; [facility] review of medications documented 1160F Last Documented On 3 9:59AM ; [facility] EMG was performed 05037 Last Documented On 3 9:42AM ; [facility] an X-ray was performed 06/30/2022 BGO [id number] Last Documented On 3 9:42AM ; [facility] a CT scan was performed 63389 Last Documented On 3 9:42AM ; [facility] an MRI was performed 49140 Last Documented On 3 9:42AM ; [facility] Surgical History Last Updated History of total hip replacement 023 Last Documented On 3 9:42AM ; [facility] Past Surgical History: Right shoulder ca lcium deposit removal 10/20/2022 Last Documented On 3 9:42AM ; [facility] Medical History Includes: Medical History addressed during this encounter Description Last Updated History of arthritis 10/20/2022 Last Documented On 3 9:42AM ; [facility] History of Fractures 10/20/2022 Last Documented On 3 9:42AM ; [facility] History of History of Rheumatology 10/20 Last Documented On 3 9:42AM ; [facility], [facility] History of osteoporosis 10/20/2022 Last Documented On 3 9:42AM ; [facility] History of Previous Fractures 10/20/2022 Last Documented On 3 9:42AM ; [facility], [facility] History of Thyroid Disease 10/20/2022 Last Documented On 3 9:42AM ; [facility], [facility] Family History Includes: Family History addressed during this encounter Description Last Updated Family history of cancer 10/20/2022 Last Documented On 3 9:42AM ; [facility], [facility] Family history of heart disease 10/21/19 23 Last Documented On 3 9:42AM ; [facility] Family history of osteoporosis 3 Last Documented On 3 9:42AM ; [facility] Family history of rheumatoid arthritis 0 10/20/2022 Last Documented On 3 9:42AM ; [facility], [facility] Family history of systemic hypertension 10/20/2022 Last Documented On 3 9:42AM ; [facility] Family history of thromboembolic disease 10/20/2022 Last Documented On 3 9:42AM ; [facility], [facility] Stroke / Seizures 10/20/2022 Last Documented On 3 9:42AM ; [facility], [facility] No significant family history 06/30/2022 Last Documented On 3 9:42AM ; [facility], [facility] Review of Systems Includes: Review of [...] Active Last Documented On 4 9:45AM ; [facility] Levaquin Allergy Skin Rashes / Er uption of skin, Hives / Urticaria 06/09/2022 Active Last Documented On 4 9:45AM ; [facility], [facility] levamir Allergy Skin Rashes / Eruption of skin 3 Active Last Documented On 4 9:45AM ; [facility], [facility] Encounters Encounter Provider Location Date Check-In Time Check-Out Time Diagnosis IN HOUSE REFERRAL ALEXEY LEBRON PA-C [facility] 02/23/20 23 9:40AM 10:22AM Insurance Includes: Active Insurance Policies Plan Name Member ID Group # Subscriber Relationship Effect drew Dates 1 - Medicare Part B [facility] [id number] Renee Ambrocio - [facility] [employer] [id number] Renee Ambrocio Clinical Notes Includes: Clinical Notes from this encounter * Progress note Date Encounter Last Documented by 02/22/2023 IN HOUSE REFERRAL Last documente d on 02/23/2023; 9:40 AM, ALEXEY LEBRON PA-C; [facility], [facility] Active Problems & Conditions - Joint Pain in Both Hips - Joint Pain, Localized in the Shoulder Chief Complaint The Chief Complaint is: BILATER HIP PAIN/low back pain. Referred Here Referred by [facility]. History of Present Illness Renee Alcala is a 67 year old female. - Allergy list reviewed - Problem list reviewed - Medication list reviewed - Patient pain level from 1-10: 4 Patient presents today upon in-house referral regarding lower back pain with bilateral leg numbness and discomfort. The right seems to be worse than the left. This seems to fall along the L4 levels predominantly especially on the right side. She does not complain of any numbness tingling that extend down the legs past the knee. Patient has had both hip joints replaced due to advanced arthritis. But she still dealing with a lot of leg symptoms. Patient has had problems now for few years. She is even had an MRI scan done a little over a year ago that identified disc degeneration with some stenosis that multiple levels but mostly at the L3-4 level. Patient has come to see us for further assessment and treatment regarding her hip and leg symptoms. Current Medication - Ascorbic Acid 500 MG [...] allergic reaction. Physical Findings - Vitals taken 02/22/2023 09:58 am pw Height 62 in 59 - 78 Weight 125 lbs 96 - 178 Body Mass Index 22.9 kg/m2 Body Surface Area 1.6 m2 Skin is unremarkable. Patient has a pain localized lumbosacral junction midline. Extension and lateral bending worsens her symptoms. Flexion improves. She is able to ambulate. She has normal gait. Hip knee and ankle motion are normal. Normal neurovascular findings. Straight leg raising negative for nerve root compression.A lot of her symptoms seem to be worse with activities. She has good strength otherwise in hip flexors knee flexion and extension. Tests 4v X-rays of the lumbar spine revealing multilevel disc degeneration. This seems to be more pronounced at the L3-4 level. There is no evidence of fractures or gross instability. She did bring the report of the MRI scan she had done in January of last year identifying the degeneration with foraminal narrowing at multiple levels. Assessment Patient appears to present with spinal stenosis symptoms likely coming from the mid lumbar region likely at the L3-4 level. Previous Tests Laboratory Studies: Neuro-Electrical Functions: EMG. Imaging: X-Ray: An X-ray was performed 06/30/2022 [facility]. CT Scan: CT scan. MRI Scan: [...] therapy has been discussed with the patient. I have offered her an epidural injection to see if this can treat her symptoms however she is not sure she wants to do this. She had a shoulder injection that caused her to have some flushing in the face. And therefore she will think about pursuing further treatment options. I do not see any indications for any surgical treatment. If she wants to pursue further treatment she will contact us for further evaluation and/or treatment options. Notes This dictation was done with voice recognition software and may contain errors and omissions. Practice Management Use of tobacco assessment performed and patient screened for future fall risk documentation of any fall with injury in past year Review of medications documented. Care Team - JACKLYN JAIN MD - MUSIC THERAPY SPECIALIST Health Reminders - Assess BMI satisfied 02/22/2023. - Assess Tobacco Use satisfied 05/26/2022.
== END 2024-07-10 23:59 | disposition home or self-care (01) ==
LOC: RAD 10:45
PROVIDERS: PCP Family Medicine; Visit Provider Nurse Practitioner Family
DX: Z12.31 Encounter for screening mammogram for malignant neoplasm of breast (principal)
CPT/HCPCS: 77063; 77067